=== PATIENT | female | born 1955 | race Caucasian/White ===

== ENCOUNTER → 2017-04-15 | Outpatient (CLI) | payer BC ==
[~2017-04-15] MED LIST: ASTNS; EFF50 PO; OXYC-57 PO; OXYSR10 PO; TRIA3AER NAE
[2017-04-15 13:20] LABS: CHOLESTEROL/HDL RATIO 2.2
== END | disposition home or self-care (01) ==
LOC: C.LABMFLN 08:24
PROVIDERS: ATTEND Family Medicine
DX: Z12.31 Encounter for screening mammogram for malignant neoplasm of breast (principal); Z13.220 Encounter for screening for lipoid disorders; Z13.1 Encounter for screening for diabetes mellitus

== ENCOUNTER 2017-07-02 07:11 | Inpatient (IN) | payer BC ==
[2017-06-03 13:15] VITALS: Ht 161.3 cm; Wt 117.9 kg
--- NOTE | 2017-06-03 13:49 | PAT Medication Instructions ---
Service Date Jun 03, 2017. Current Home Medication List Azelastine Hcl (Ophth) (Azelastine Hcl), 1 DROPS OP BID Azelastine Hcl-Fluticasone Pro (Dymista), 2 SPRY ZIA QAM Loratadine (Claritin), 10 MG PO QAM Multivitamin (Multivitamin), 1 TAB PO QAM Naproxen (Aleve), 220 MG PO PRN Triamcinolone Acetonide (Nasal (Nasacort Allergy 24Hr), 2 SPRAYS INTNAS QAM Venlafaxine Hcl (Venlafaxine Extended Rel), 37.5 MG PO QAM Medication Instructions For Your Scheduled Surgery -Contact your surgeon for instructions for: Naproxen (Aleve), 220 MG PO PRN - Hold the following medications the morning of surgery: Loratadine (Claritin), 10 MG PO QAM Multivitamin (Multivitamin), 1 TAB PO QAM - Take the following medications the morning of surgery with a sip of water: Triamcinolone Acetonide (Nasal (Nasacort Allergy 24Hr), 2 SPRAYS INTNAS QAM Venlafaxine Hcl (Venlafaxine Extended Rel), 37.5 MG PO QAM Azelastine Hcl (Ophth) (Azelastine Hcl), 1 DROPS OP BID Azelastine Hcl-Fluticasone Pro (Dymista), 2 SPRY ZIA QAM - Take the following medications as scheduled the night before surgery: Azelastine Hcl (Ophth) (Azelastine Hcl), 1 DROPS OP BID If you have any questions please call us at [phone] or [phone] or [phone]
--- NOTE | 2017-06-03 14:27 | DIAGNOSTIC IMAGING REPORT ---
CHEST 2 VIEWS ROUTINE CLINICAL HISTORY: 62 years-old Female presenting with preoperative assessment. TECHNIQUE: PA and lateral views of the chest were obtained. COMPARISON: 12/06/2010. FINDINGS: Atherosclerosis of aortic arch. Top normal heart size. Lungs and pleural spaces clear. Degenerative changes of the thoracic spine. Cholecystectomy clips noted. IMPRESSION: 1. No acute cardiopulmonary disease. Electronically signed by: Felipe Macias M.D. 06/03/2017 2:26 PM Dictated Date/Time: 06/03/2017 2:25 PM
[2017-06-03 15:01] LABS: BASO % 0.3 %; BASO ABS # 0.02 K/uL (0-0.2); EOS % 3.6 %; EOS ABS # 0.29 K/uL (0-0.5); HEMATOCRIT 41.5 % (37-47); HEMOGLOBIN 14.4 g/dL (12.0-16.0); IG# 0.01 K/uL (0.00-0.02); LYMPH % 28.4 %; LYMPH ABS # 2.27 K/uL (1.2-3.4); MEAN CELL VOLUME 93.5 fL (80-100); MEAN CORPUSCULAR HEMOGLOBIN 32.4 pg (25-34); MEAN CORPUSCULAR HGB CONC 34.7 g/dl (32-36); MEAN PLATELET VOLUME 9.7 fL (7.4-10.4); MONO % 5.4 %; MONO ABS # 0.43 K/uL (0.11-0.59); NEUT % 62.2 %; NEUT ABS # 4.97 K/uL (1.4-6.5); PLATELET COUNT 247 K/uL (130-400); RED CELL DISTRIBUTION WIDTH CV 13.3 % (11.5-14.5); RED CELL DISTRIBUTION WIDTH SD 45.4 fL (36.4-46.3); WHITE BLOOD COUNT 7.99 K/uL (4.8-10.8)
[2017-06-03 15:10] LABS: PTT PATIENT 25.1 SECONDS (21.0-31.0)
[2017-06-03 16:20] LABS: ALBUMIN 4.1 gm/dl (3.4-5.0); CALCIUM 8.8 mg/dl (8.5-10.1); CREATININE 0.86 mg/dl (0.60-1.20); POTASSIUM 3.7 mmol/L (3.5-5.1)
[2017-06-04 06:09] LABS: HEMOGLOBIN A1C 5.4 % (4.5-5.6)
--- NOTE | 2017-07-01 20:18 | HISTORY & PHYSICAL EXAMINATION ---
DATE OF ADMISSION: 07/02/2017 CHIEF COMPLAINT: Chronic right knee pain. HISTORY OF PRESENT ILLNESS: This is a 62-year-old female patient of Dr. Zamora'mathew complaining of chronic right knee pain, longstanding, now progressively getting worse. The patient has failed conservative treatment including anti-inflammatories and intraarticular injections. The patient has increased pain with weightbearing activities and her pain does interfere with her activities of daily living. PAST MEDICAL HISTORY: Osteoarthritis, obesity. SOCIAL HISTORY: Nonsmoker, nondrinker. PAST SURGICAL HISTORY: Left knee replacement, gallbladder surgery and tubal ligation. FAMILY HISTORY: Noncontributory. REVIEW OF SYSTEMS: The patient complains of chronic right knee pain, otherwise denies any shortness of breath, chest pain, nausea, vomiting or any other joint complaints. MEDICATIONS: 1. Azelastine 2 sprays in each nostril twice daily. 2. Nasacort 24-hour inhaler 55 mcg 2 puffs daily each nostril. 3. Venlafaxine 37.5 mg daily. ALLERGIES: No known drug allergies. PHYSICAL EXAMINATION: GENERAL: Well-developed, well-nourished 62-year-old female in no acute distress. She is alert and oriented x3 and pleasant. HEENT: Normocephalic, atraumatic. Extraocular motions are intact. Pupils are equal and reactive to light. HEART: Regular rate and rhythm, no murmurs are appreciated. LUNGS: Clear. ABDOMEN: Soft and nontender, bowel sounds are present. EXTREMITIES: Right knee reveals a neutral form. She is obese. Range of motion is limited at 0-95 degrees. She has a mild effusion. She has crepitation with passive range of motion and medial joint line tenderness. She has 4/5 strength. NEUROLOGIC: Neurovascularly, she is intact in her right lower extremity. DIAGNOSES: Right knee end-stage osteoarthritis and obesity. PLAN: The patient was advised of her diagnosis. Indications, risks, benefits, and postop course have all been reviewed. The patient wishes to proceed with a right total knee arthroplasty. Necessary consent forms, preoperative testing and clearances will be obtained.
[2017-07-02] VITALS (9 sets, daily range): BP systolic 98–144; BP diastolic 56–76; PULSE 62–80; TEMP 36.5–36.9; O2SAT 93–98
[~2017-07-02] VITALS: Ht 161.3 cm; Wt 117.9 kg
[2017-07-02] MEDS: TRANEXAMIC ACID INJ 1,000 MG in SYRINGE 0 ML IV SCH ×2 (06:30→09:44)
[~2017-07-02 07:11] MED LIST changes: +ACETAMINOPHEN 500 MG TAB PO SCH; -ASTNS; +AZEL0.055 OP; +AZEL30SP NAE; +BUPIVACAINE 0.25% 30 ML VIAL ONE; +BUPIVACAINE 0.5 % 5 MG/1 ML PF 10ML VIAL ONE; +CEFAZOLIN 2000MG IV PUSH 10 ML IV SCH; +CLR10 PO; +CeleBREX 200 MG CAP PO SCH; +DEXAMETHASONE 4 MG TAB PO SCH; -EFF50 PO; +FAMOTIDINE 20 MG TAB PO SCH; +GABAPENTIN 300 MG CAP PO SCH; +LACTATED RINGER'S 1000ML 1,000 ML IV SCH; +LACTATED RINGER'S 1000ML 500 ML IV SCH; +LACTATED RINGER'S 1000ML IV SCH; +METOCLOPRAMIDE HCL 10 MG TAB PO SCH; +MULT-506 PO; +NAPR1TAB9 PO; -OXYC-57 PO; -OXYSR10 PO; +ROPIVACAINE 5MG/ML 30 ML 150 MG, BUPIVACAINE 0.5% MPF INJ 30 ML, EpINEphrine HCL INJ 0.... INFIL SCH; +TRIA1SPR4 INTNAS; -TRIA3AER NAE; +VENL37.593 PO
[2017-07-02] MEDS ORDERED: EpHEDrine SULFATE INJ 50 MG/ML AMP IV PRN (07:15)
[2017-07-02] MEDS ORDERED: ONDANSETRON INJ 2 MG/ML 2 ML VIAL IV PRN ×2 (07:15→12:30)
[2017-07-02] MEDS ORDERED: ATROPINE SULFATE 0.1 MG/ML 5ML SYR IV PRN (07:15)
[2017-07-02] MEDS ORDERED: MIDAZOLAM HCL 1 MG/ML 2ML VIAL ONE ×2 (08:29→11:27)
[2017-07-02] MEDS ORDERED: ORTHO JOINT ANESTHETIC ONE (09:43)
[2017-07-02] MEDS ORDERED: BACITRACIN 50000 UNIT VIAL ONE (09:43)
[2017-07-02] MEDS ORDERED: POVIDONE-IODINE OP SOLN 30 ML BTL ONE (09:43)
[2017-07-02] MEDS ORDERED: LIDOCAINE HCL 2% 2 ML VIAL (20MG/ML) ONE (09:46)
[2017-07-02] MEDS ORDERED: PROPOFOL IV EMULSION 10 MG/ML 20 ML VIAL IV ONE (09:46)
--- NOTE | 2017-07-02 09:46 | History & Physical Bridge Note ---
H&P Re-Evaluation Bridge Note: I have examined the patient, reviewed the History & Physical and in the interval since the performance of the History & Physical I have noted the following changes of clinical significance: No changes noted
[2017-07-02] MEDS ORDERED: PHENYLEPHRINE 100MCG/ML 5ML SYR ONE (11:59)
[2017-07-02] MEDS ORDERED: OXYCODONE HCL IR 5 MG TAB (IMMEDIATE RELEASE) PO PRN (12:30)
[2017-07-02] MEDS ORDERED: METOCLOPRAMIDE HCL INJ 5 MG/ML 2 ML VIAL IV PRN (12:30)
[2017-07-02] MEDS ORDERED: MoRPHine SULFATE 2 MG/ML CARP IV PRN (12:30)
[2017-07-02] MEDS ORDERED: MAGNESIUM HYDROXIDE SUSP 30 ML UDC PO PRN (12:30)
[2017-07-02] MEDS ORDERED: BISACODYL 10 MG SUPP PR PRN (12:30)
[2017-07-02] MEDS ORDERED: SOD PHOSPHATE/SOD BIPHOSPHATE ENEMA 132 ML BTL PR PRN (12:30)
[2017-07-02] MEDS ORDERED: ZOLPIDEM TARTRATE 5 MG TAB PO PRN (12:30)
--- NOTE | 2017-07-02 12:33 | [facility] Post Operative Brief Note ---
Immediate Operative Summary Operative Date Jul 02, 2017. Pre-Operative Diagnosis Right knee end-stage osteoarthritis,morbid obesity Post-Operative Diagnosis Right knee end-stage osteoarthritis,morbid obesity Procedure(s) Performed Right Total Knee Arthroplasty, Cemented Surgeon Dr. Zamora Hydrotechnical Specialist Surgeon(s) Hany Mason PA-C Estimated Blood Loss 5 mL Findings Consistent with Post-Op Diagnosis Specimens A: Right Knee Bone and Tissue Drains 2 hemovac Anesthesia Type MAC Spinal Regional Complication(s) none
--- NOTE | 2017-07-02 12:45 | DIAGNOSTIC IMAGING REPORT ---
RIGHT KNEE 2 VIEWS CLINICAL HISTORY: Degenerative arthritis. Postsurgical study COMPARISON: None. DISCUSSION: There are postsurgical changes of a total right knee arthroplasty and patellar resurfacing. The femoral and tibial components appear well seated. Overlying skin cecilia and surgical drains are evident. There is air in the soft tissues consistent with recent surgery. IMPRESSION: Postsurgical changes of a total right knee arthroplasty. Electronically signed by: Mehdi Ghotra M.D. 07/02/2017 12:44 PM Dictated Date/Time: 07/02/2017 12:43 PM
--- NOTE | 2017-07-02 12:48 | Anesthesiology Progress Note ---
Anesthesia Post Op Note Date & Time Jul 02, 2017 at 12:47 Vital Signs Pain Intensity: 0 Vital Signs Past 12 Hours Date Time Temp Pulse Resp B/P (MAP) Pulse Ox O2 Delivery O2 Flow Rate FiO2 07/02/17 12:40 82 16 111/56 97 Oxymask 3 07/02/17 12:30 86 16 108/58 98 Oxymask 5 07/02/17 12:24 36.2 86 18 94/52 98 Oxymask 5 07/02/17 07:53 36.5 62 20 144/76 96 Room Air Notes Mental Status: alert / awake / arousable, participated in evaluation Pt Amnestic to Procedure: Yes Nausea / Vomiting: adequately controlled Pain: adequately controlled Airway Patency, RR, SpO2: stable & adequate BP & HR: stable & adequate Hydration State: stable & adequate Anesthetic Complications: no major complications apparent
[2017-07-02] MEDS: D5W AND 1/2NSS + 20MEQ KCL 1,000 ML IV SCH ×2 (14:25→23:57)
[2017-07-02] MEDS: ACETAMINOPHEN 500 MG TAB PO SCH ×2 (14:25→21:41)
--- NOTE | 2017-07-02 15:13 | OPERATIVE REPORT ---
DATE OF OPERATION: 07/02/2017 INDICATION FOR PROCEDURE: The patient is a 62-year-old female with progressive severe osteoarthritis of right knee. In 2010, she had a left knee replacement and did well with that. Her radiographs of her right knee demonstrate she has tricompartmental osteoarthritis. She has large posterior osteophytes and loose bodies and tricompartmental osteophytes, advanced patellofemoral and medial compartment DJD, varus knee. PREOPERATIVE DIAGNOSES: Severe endstage tricompartmental osteoarthritis, morbid obesity, BMI of 45.3. POSTOPERATIVE DIAGNOSES: Same. PROCEDURE: Right total knee arthroplasty, increased difficulty due to morbid obesity, BMI of 45.3. SURGEON: Dr. Zamora. RING PACKER: BRENDA Kessler. ANESTHESIA: Spinal, adductor nerve block and Orthomix and sedation. DESCRIPTION OF PROCEDURE: The patient taken to the operating room, anesthetized under anesthesia as dictated. She was placed supine on the operating room table. Knee exam demonstrates she had a very obese upper thigh and obese knee. She had a 5-10 degree flexion contracture, flexion only to 90 degrees. She has stiff knee. No instability. Pneumatic tourniquet was placed about her obese upper thigh. Then her right lower extremity was prepped and draped with ChloraPrep in sterile fashion. Leg was elevated, exsanguinated with Esmarch bandage. Pneumatic tourniquet was raised to 350 mmHg because of obesity. A longitudinal incision was made across the right knee. Skin was incised sharply and subcutaneous flaps were elevated. A moderately deep layer of fat was divided down to the fascia and elevated off the fascia. Incision was made through medial retinaculum and extended up in the mid third of the quadriceps tendon and extended down to the medial tibial tubercle. Intra-articular findings demonstrated that she had severe tricompartmental DJD, very large patellar osteophytes, grade 4 patellofemoral DJD, grade 4 medial compartment DJD. I used the [employer] 2.0 total knee arthroplasty system. Because of her obesity, we could not use an MRI templating, so we are using standard instrumentation. The knee was exposed by first excising the infrapatellar fat pad then doing some releases around the proximal medial tibial plateau. Then the medial meniscus was resected and the cruciate ligaments were resected, lateral meniscus resected, some of the fat pad over the anterior femur for placement of the plate to the anterior portion of the femoral component was resected and lateral synovial bands were released. Some of the thickened inflamed synovium was resected. The retractors were placed and the femur was exposed. Intramedullary drill hole was made into the femoral canal. The femoral alignment guide was placed. The femoral cut was made in 5 degrees of valgus. I had to use a +2 resection because of the flexion contracture more than the standard femoral cut. After femoral cut was made, we extended the knee and then addressed the patella which was very large and impeding our exposure of the femur. A subperiosteal peel lateral release was performed. The patella width was measured. Width was reproduced using a freehand cut technique and a 35 dome patella component. The drill hole was made and all bone spurs were resected. Then we get better retraction to expose the femur. The femoral sizing guide was placed in position and then we matched the epicondylar axis, pinned in position and then sized the femur and this knee was a 5 femoral component. After drilling the holes to place the cutting guide, the 5-in-1 cutting block was placed. Then anterior, posterior and chamfer cuts were made. The patient had very hard bone. Then the tibia was subluxed and the external tibial cutting guide was used to make a perpendicular cut to the long axis of the tibia, resecting the bone below the most medial deficient side. Then we used the laminar restaurant expeditor to assess ligamentous balance and remove any remnants of menisci, PCL posteriorly and then patient very large osteophytes and loose bodies. A large loose body was in the lateral compartment and there was significant bony spurs on the posterior femoral condyle. We used a curved osteotome to remove the spurs and angled curette and a Raheem to remove the bony fragments. All osteophytes were removed. We assessed ligaments balance in flexion and extension and they were balanced. Then the tibia was exposed and the tibia was sized for a 3 tibial component. A size 3 trial was externally rotated in line with the tibial tubercle, pinned in position. The punch for the stem was used. Then, the 5 femoral trial was inserted and centered and the notch cutting devices were used. A collet was placed. A 10 poly insert gave balanced ligaments through full motion and patient had full extension and 125 degrees of flexion. The trials were removed. We used the bone cuts to bone graft the femoral drill hole. This was irrigated and bone wax was placed into the notch area. Then the Orthomix anesthetic cocktail was injected per protocol, the knee was copiously irrigated with pulsatile lavage antibiotic solution and bacitracin. Final components were cemented with Simplex G cement. The final components were the 5 Oxinium posterior stabilized right femoral component, 3 primary tibial baseplate, the 10 mm posterior stabilized poly insert and 35 patella. The knee was placed in full extension while the cement cured and Betadine soak was used per protocol and cement cured. After the cement cured, the knee was again copiously irrigated out of the Betadine with pulsatile lavage antibiotic solution and bacitracin. Two drains were brought out laterally. The quadriceps tendon and medial retinaculum were closed with interrupted [id number] #1 Vicryl sutures. The knee was taken through a full range of motion and repair was secure. Subcutaneous tissues were closed with interrupted 2-0 Vicryl and skin was closed with cecilia and Silverlon dressing was applied. We did do closure over 2 Hemovac drains which were brought out laterally. BRENDA Kessler was my certified first assistant in the procedure. He assisted in patient positioning, museum assistant in placement of tourniquet placement, patient positioning, prepping, draping and during the procedure leg positioning, soft tissue retraction, instrument management and assisted in the subcutaneous and skin closure and dressings and will participate in the postoperative care of the patient. Through the procedure there was an increased level of difficulty with all of procedure due to her morbid obesity, BMI of 45.3. I attest to the content of the Intraoperative Record and any orders documented therein. Any exception s are noted below.
--- NOTE | 2017-07-02 15:23 | Medical Consult ---
Consultation Date of Consultation: Jul 02, 2017. Attending Physician: Steve Zamora M.D. Reason for Consultation: Medical Management History of Present Illness 62 y/o F who was admitted earlier today by Dr. Zamora s/p R TKA. Pt is doing well post-op. Pain is not really present yet. Tolerated snacks s/p OR. No chest pain or SOB. Pt denies fever, abd pain, n/v/c/d, LE pain or swelling. Pt states she had been taking effexor sporadically for post-menopausal issues, but had a recent d/c of this w/o issue. Past Medical/Surgical History Allergies Social History Smoking Status: Never Smoker Drug Use: none Allergies Coded Allergies: Meperidine (Verified Allergy, Unknown, NAUSEA AND VOMITING, 07/02/17) Current Inpatient Medications Current Inpatient Medications Medications (Trade) Dose Ordered Sig/Lizett Route Start Time Stop Time Status Last Admin Dose Admin Lactated Ringer's 1,000 ml @ 60 mls/hr [id number] IV 07/02/17 06:00 07/02/17 22:39 07/02/17 08:28 60 MLS/HR Cefazolin Sodium 10 ml @ 2.5 mls/min PREOP IV 07/02/17 06:00 07/02/17 18:00 07/02/17 10:02 2.5 MLS/MIN Acetaminophen (Tylenol Tab) 1,000 mg PREOP PO 07/02/17 06:00 07/02/17 18:00 07/02/17 08:31 1,000 MG Celecoxib (CeleBREX CAP) 200 mg PREOP PO 07/02/17 06:00 07/02/17 18:00 07/02/17 08:29 200 MG Dexamethasone (Decadron Tab) 8 mg PREOP PO 07/02/17 06:00 07/02/17 18:00 07/02/17 08:30 8 MG Famotidine (Pepcid Tab) 20 mg PREOP PO 07/02/17 06:00 07/02/17 18:00 07/02/17 08:30 20 MG Gabapentin (Neurontin Cap) 600 mg PREOP PO 07/02/17 06:00 07/02/17 18:00 07/02/17 08:30 600 MG Metoclopramide HCl (Reglan Tab) 10 mg PREOP PO 07/02/17 06:00 07/02/17 18:00 07/02/17 08:30 10 MG Lactated Ringer's 1,000 ml @ 15 mls/hr Q24H IV 07/02/17 06:00 07/03/17 05:59 Ephedrine Sulfate (EpHEDrine SULFATE INJ) 5 mg Q5M PRN IV 07/02/17 07:15 07/03/17 07:14 Atropine Sulfate (Atropine Sulfate 0.1mg/ml Inj) 0.5 mg Q1M PRN IV 07/02/17 07:15 07/03/17 07:14 Loratadine (Claritin Tab) 10 mg QAM PO 07/03/17 09:00 08/02/17 08:59 Triamcinolone Acetonide (Nasacort Allergy 24hr) 2 sprays QAM NA 07/03/17 09:00 08/02/17 08:59 Miscellaneous Information (Order Awaiting Action) 1 ea QS N/A 07/02/17 16:00 08/01/17 15:59 Miscellaneous Information (Order Awaiting Action) 1 ea QS N/A 07/02/17 16:00 08/01/17 15:59 Potassium Chloride/Dextrose/ Sod Cl 1,000 ml @ 100 mls/hr Q10H IV 07/02/17 14:15 07/03/17 14:14 Cefazolin Sodium 2000 mg/Syringe 15 ml @ 3.75 mls/ min Q8H IV 07/02/17 18:00 07/03/17 02:03 Oxycodone HCl (Roxicodone Immediate Rel Tab) 1 TABLET FOR PAIN RATING... Q4H PRN PO 07/02/17 12:30 07/16/17 12:29 Morphine Sulfate (MoRPHine SULFATE INJ) FOR PAIN, 2-4MG 2MG FOR P... Q2H PRN IV 07/02/17 12:30 07/16/17 12:29 Acetaminophen (Tylenol Tab) 1,000 mg Q8 PO 07/02/17 15:00 08/01/17 14:59 Magnesium Hydroxide (Milk Of Magnesia Susp) 30 ml Q6H PRN PO 07/02/17 12:30 08/01/17 12:29 Bisacodyl (Dulcolax Supp) 10 mg DAILY PRN NV 07/02/17 12:30 08/01/17 12:29 Sodium Biphosphate/ Sodium Phosphate (Fleet Enema) 132 ml DAILY PRN NV 07/02/17 12:30 08/01/17 12:29 Docusate Sodium (coLACE CAP) 100 mg BID PO 07/02/17 21:00 08/01/17 20:59 Diphenhydramine HCl (Benadryl Cap) 25 mg Q8H PRN PO 07/02/17 12:30 08/01/17 12:29 Zolpidem Tartrate (Ambien Tab) 5 mg HSZ PRN PO 07/02/17 12:30 08/01/17 12:29 Multivitamins (Multivitamin Tab) 1 tab QAM PO 07/03/17 09:00 08/02/17 08:59 Ondansetron HCl (Zofran Inj) 4 mg Q6H PRN IV 07/02/17 12:30 08/01/17 12:29 Metoclopramide HCl (Reglan Inj) 10 mg Q6H PRN IV 07/02/17 12:30 08/01/17 12:29 Pantoprazole Sodium (Protonix Tab) 40 mg QAM PO 07/03/17 09:00 07/07/17 08:59 Tramadol HCl (Ultram Tab) 1 tablet for pain rating... Q4H PRN PO 07/02/17 12:30 08/01/17 12:29 Rivaroxaban (Xarelto Tab) 10 mg Q24H PO 07/02/17 21:00 07/16/17 20:59 Review of Systems Pertinent positives and negatives reviewed in HPI--all others negative Physical Exam Date Time Temp Pulse Resp B/P (MAP) Pulse Ox O2 Delivery O2 Flow Rate FiO2 07/02/17 14:04 98 Nasal Cannula 2.0 07/02/17 13:50 98 Nasal Cannula 2.0 07/02/17 13:48 98 Nasal Cannula 2.0 07/02/17 13:43 36.6 79 17 118/74 (89) 96 Nasal Cannula 2.0 07/02/17 13:30 72 16 93/55 95 Oxymask 3 07/02/17 13:15 75 16 98/54 95 Oxymask 3 07/02/17 13:00 36.4 78 16 97/56 95 Oxymask 3 07/02/17 12:50 78 16 93/56 95 Oxymask 3 07/02/17 12:40 82 16 111/56 97 Oxymask 3 07/02/17 12:30 86 16 108/58 98 Oxymask 5 07/02/17 12:24 36.2 86 18 94/52 98 Oxymask 5 07/02/17 07:53 36.5 62 20 144/76 96 Room Air General Appearance: WD/WN, no apparent distress Head: normocephalic, atraumatic Eyes: normal inspection, sclerae normal Respiratory/Chest: normal breath sounds, no respiratory distress Cardiovascular: regular rate, rhythm, normal peripheral pulses Abdomen/GI: non tender, soft Extremities/Musculoskelatal: no calf tenderness, no pedal edema Neurologic/Psych: alert, normal mood/affect, oriented x 3 Skin: normal color, warm/dry Assessment & Plan 62 y/o F who was admitted on 07/[address] Zamora s/p R TKA. R TKA: as per ortho Allergies: continue nasal sprays Post-menopausal syndrome: appears resolved and no longer needs effexor DVT proph and diet as per ortho
[2017-07-02] MEDS: CEFAZOLIN IV 2,000 MG in SYRINGE 0 ML IV SCH (18:14)
[2017-07-02] MEDS: TRAMADOL HCL 50 MG TAB PO PRN (19:58)
[2017-07-02] MEDS: DOCUSATE SODIUM 100 MG CAP PO SCH (20:37)
[2017-07-02] MEDS: RIVAROXABAN 10 MG TAB PO SCH (20:38)
[2017-07-03] MEDS: CEFAZOLIN IV 2,000 MG in SYRINGE 0 ML IV SCH (01:49)
[2017-07-03 04:05] VITALS: BP 125/71; PULSE 66; TEMP 36.6; O2SAT 97
[2017-07-03] MEDS: ACETAMINOPHEN 500 MG TAB PO SCH ×3 (05:40→20:57)
[2017-07-03 06:09] LABS: HEMOGLOBIN 11.4 g/dL (12.0-16.0); MEAN CELL VOLUME 92.4 fL (80-100); MEAN CORPUSCULAR HEMOGLOBIN 31.9 pg (25-34); MEAN CORPUSCULAR HGB CONC 34.5 g/dl (32-36); MEAN PLATELET VOLUME 9.6 fL (7.4-10.4); PLATELET COUNT 202 K/uL (130-400); RED CELL DISTRIBUTION WIDTH CV 13.5 % (11.5-14.5); RED CELL DISTRIBUTION WIDTH SD 45.2 fL (36.4-46.3)
[2017-07-03 06:43] LABS: CALCIUM 8.2 mg/dl (8.5-10.1); CREATININE 0.73 mg/dl (0.60-1.20); POTASSIUM 4.5 mmol/L (3.5-5.1)
[2017-07-03 07:07] VITALS: BP 123/72; PULSE 65; TEMP 36.6; O2SAT 96
--- NOTE | 2017-07-03 08:01 | Orthopedic Progress Note ---
Orthopedic Progress Note Date of Service Jul 03, 2017. Subjective Post OP Day: 1 Reports: feeling well, pain controlled w PO medications, Denies: complaints, chest pain, SOB, nausea / vomiting, light headedness, calf pain Objective calves soft nontender, N/V intact, capillary refill less than 2 sec., dressing C /D/I, A&O x3, toes mobile Date Time Temp Pulse Resp B/P (MAP) Pulse Ox O2 Delivery O2 Flow Rate FiO2 07/03/17 07:07 36.6 65 18 123/72 (89) 96 Room Air 07/03/17 04:05 36.6 66 16 125/71 (89) 97 Room Air 07/02/17 23:45 Room Air 07/02/17 23:18 36.6 69 15 98/56 (70) 94 Room Air 07/02/17 19:00 36.9 80 18 103/64 (77) 93 Room Air 07/02/17 16:43 76 18 135/67 (89) 93 Room Air 07/02/17 15:45 94 Room Air 07/02/17 15:44 78 18 108/66 (80) 94 Room Air 07/02/17 14:04 98 Nasal Cannula 2.0 07/02/17 13:50 98 Nasal Cannula 2.0 07/02/17 13:48 98 Nasal Cannula 2.0 07/02/17 13:43 36.6 79 17 118/74 (89) 96 Nasal Cannula 2.0 07/02/17 13:30 72 16 93/55 95 Oxymask 3 07/02/17 13:15 75 16 98/54 95 Oxymask 3 07/02/17 13:00 36.4 78 16 97/56 95 Oxymask 3 07/02/17 12:50 78 16 93/56 95 Oxymask 3 07/02/17 12:40 82 16 111/56 97 Oxymask 3 07/02/17 12:30 86 16 108/58 98 Oxymask 5 07/02/17 12:24 36.2 86 18 94/52 98 Oxymask 5 Laboratory Results 24 Hours: Test 07/03/17 05:35 Hematocrit 33.0 % Hemoglobin 11.4 g/dL Assessment & Plan Assessment: POD #1, Right TKA Plan: PT/ OT DVT proph- Xarelto D/C planning- Home w OPPT As per medicine Inhouse Planning Pain Management: Ultram, Morphine, PO Tylenol, Oxy IR DVT Prophylaxis: TEDs, SCDs, Xarelto Discharge Planning Discharge Planning: home with oppt Pain Management: PO Tylenol, Oxy IR DVT Prophylaxis: TEDs, Xarelto Therapy: Physical Therapy, Occupational Therapy
[2017-07-03] MEDS: TRIAMCINOLONE ACET NASAL SPRAY 10.8ML BTL SCH (09:00)
[2017-07-03] MEDS: DOCUSATE SODIUM 100 MG CAP PO SCH ×2 (09:01→20:56)
[2017-07-03] MEDS: MULTIVITAMIN TAB PO SCH (09:01)
[2017-07-03] MEDS: LORATADINE 10 MG TAB PO SCH (09:02)
[2017-07-03] MEDS: D5W AND 1/2NSS + 20MEQ KCL 1,000 ML IV SCH (09:02)
[2017-07-03] MEDS: PANTOprazole SOD 40 MG TAB PO SCH (09:02)
--- NOTE | 2017-07-03 09:35 | Anesthesiology Progress Note ---
Anesthesia Post Op Note Date & Time Jul 03, 2017 at 09:33 Vital Signs Pain Intensity: 0.0 Vital Signs Past 12 Hours Date Time Temp Pulse Resp B/P (MAP) Pulse Ox O2 Delivery O2 Flow Rate FiO2 07/03/17 07:30 Room Air 07/03/17 07:07 36.6 65 18 123/72 (89) 96 Room Air 07/03/17 04:05 36.6 66 16 125/71 (89) 97 Room Air 07/02/17 23:45 Room Air 07/02/17 23:18 36.6 69 15 98/56 (70) 94 Room Air Notes Mental Status: alert / awake / arousable, participated in evaluation Pt Amnestic to Procedure: Yes Nausea / Vomiting: adequately controlled Pain: adequately controlled Airway Patency, RR, SpO2: stable & adequate BP & HR: stable & adequate Hydration State: stable & adequate Neuraxial Anesthesia: sensory block resolved Anesthetic Complications: no major complications apparent
--- NOTE | 2017-07-03 12:01 | Progress Note ---
Subjective Date of Service: Jul 03, 2017. Subjective Pt evaluation today including: conversation w/ patient t is doing well post-op. States she is aware of her cecilia but no real pain. Tolerating PO without issue. Pt denies fever, SOB, chest pain, abd pain, n/v/c/ d, LE pain or swelling. States her home is set up for this as her had a somewhat recent knee replacement. Review of Systems All Other Systems: Reviewed and Negative Objective Vital Signs Date Time Temp Pulse Resp B/P (MAP) Pulse Ox O2 Delivery O2 Flow Rate FiO2 07/03/17 07:30 Room Air 07/03/17 07:07 36.6 65 18 123/72 (89) 96 Room Air 07/03/17 04:05 36.6 66 16 125/71 (89) 97 Room Air 07/02/17 23:45 Room Air 07/02/17 23:18 36.6 69 15 98/56 (70) 94 Room Air 07/02/17 19:00 36.9 80 18 103/64 (77) 93 Room Air 07/02/17 16:43 76 18 135/67 (89) 93 Room Air 07/02/17 15:45 94 Room Air 07/02/17 15:44 78 18 108/66 (80) 94 Room Air 07/02/17 14:04 98 Nasal Cannula 2.0 07/02/17 13:50 98 Nasal Cannula 2.0 07/02/17 13:48 98 Nasal Cannula 2.0 07/02/17 13:43 36.6 79 17 118/74 (89) 96 Nasal Cannula 2.0 07/02/17 13:30 72 16 93/55 95 Oxymask 3 07/02/17 13:15 75 16 98/54 95 Oxymask 3 07/02/17 13:00 36.4 78 16 97/56 95 Oxymask 3 07/02/17 12:50 78 16 93/56 95 Oxymask 3 07/02/17 12:40 82 16 111/56 97 Oxymask 3 07/02/17 12:30 86 16 108/58 98 Oxymask 5 07/02/17 12:24 36.2 86 18 94/52 98 Oxymask 5 Physical Exam Comments: General Appearance: WD/WN, no apparent distress Head: normocephalic, atraumatic Eyes: normal inspection, sclerae normal Respiratory/Chest: normal breath sounds, no respiratory distress Cardiovascular: regular rate, rhythm, normal peripheral pulses Abdomen/GI: non tender, soft Extremities/Musculoskelatal: no calf tenderness, no pedal edema Neurologic/Psych: alert, normal mood/affect, oriented x 3 Skin: normal color, warm/dry Laboratory Results Last 24 Hours Test 07/03/17 05:35 White Blood Count 14.60 K/uL Red Blood Count 3.57 M/uL Hemoglobin 11.4 g/dL Hematocrit 33.0 % Mean Corpuscular Volume 92.4 fL Mean Corpuscular Hemoglobin 31.9 pg Mean Corpuscular Hemoglobin Concent 34.5 g/dl RDW Standard Deviation 45.2 fL RDW Coefficient of Variation 13.5 % Platelet Count 202 K/uL Mean Platelet Volume 9.6 fL Sodium Level 137 mmol/L Potassium Level 4.5 mmol/L Chloride Level 107 mmol/L Carbon Dioxide Level 26 mmol/L Anion Gap 4.0 mmol/L Blood Urea Nitrogen 12 mg/dl Creatinine 0.73 mg/dl Est Creatinine Clear Calc Drug Dose 98.7 ml/min Estimated GFR () 101.6 Estimated GFR (Non- 87.7 BUN/Creatinine Ratio 16.4 Random Glucose 136 mg/dl Calcium Level 8.2 mg/dl Assessment and Plan 62 y/o F who was admitted on 07/[address] Zamora s/p R TKA. R TKA: as per ortho Allergies: continue nasal sprays Post-menopausal syndrome: appears resolved and no longer needs effexor DVT proph and diet as per ortho Plans are for home with outpt PT/OT
[2017-07-03] MEDS ORDERED: AZEL0.15 NAE (15:07)
[2017-07-03 15:45] VITALS: O2SAT 96
[2017-07-03 16:03] VITALS: BP 125/75; PULSE 73; TEMP 36.4; O2SAT 96
[2017-07-03] MEDS: AZELASTINE HCL 0.1 % NASAL SPRAY SCH (20:56)
[2017-07-03] MEDS: RIVAROXABAN 10 MG TAB PO SCH (20:56)
[2017-07-03 23:52] VITALS: BP 125/72; PULSE 72; TEMP 36.9; O2SAT 96
[2017-07-04] MEDS: ACETAMINOPHEN 500 MG TAB PO SCH ×2 (05:31→15:25)
[2017-07-04] MEDS: TRAMADOL HCL 50 MG TAB PO PRN (05:33)
[2017-07-04 06:20] VITALS: BP 118/74; PULSE 67; TEMP 36.9; O2SAT 97
[2017-07-04 07:15] VITALS: BP 108/68
[2017-07-04 07:20] VITALS: BP 96/61
[2017-07-04 07:46] LABS: HEMATOCRIT 31.6 % (37-47); HEMOGLOBIN 10.8 g/dL (12.0-16.0); MEAN CELL VOLUME 93.5 fL (80-100); MEAN CORPUSCULAR HGB CONC 34.2 g/dl (32-36); MEAN PLATELET VOLUME 9.6 fL (7.4-10.4); PLATELET COUNT 226 K/uL (130-400); RED CELL DISTRIBUTION WIDTH CV 13.7 % (11.5-14.5); RED CELL DISTRIBUTION WIDTH SD 46.6 fL (36.4-46.3); WHITE BLOOD COUNT 10.29 K/uL (4.8-10.8)
[2017-07-04 08:09] LABS: CALCIUM 7.9 mg/dl (8.5-10.1); CREATININE 0.84 mg/dl (0.60-1.20); POTASSIUM 3.9 mmol/L (3.5-5.1)
[2017-07-04] MEDS: TRIAMCINOLONE ACET NASAL SPRAY 10.8ML BTL SCH (08:09)
[2017-07-04] MEDS: MULTIVITAMIN TAB PO SCH (08:10)
[2017-07-04] MEDS: PANTOprazole SOD 40 MG TAB PO SCH (08:10)
[2017-07-04] MEDS: AZELASTINE HCL 0.1 % NASAL SPRAY SCH (08:10)
[2017-07-04] MEDS: LORATADINE 10 MG TAB PO SCH (08:10)
[2017-07-04] MEDS: DOCUSATE SODIUM 100 MG CAP PO SCH (08:10)
--- NOTE | 2017-07-04 08:14 | Orthopedic Progress Note ---
Orthopedic Progress Note Date of Service Jul 04, 2017. Subjective Post OP Day: 2 Reports: feeling well, light headedness, Denies: complaints, chest pain, SOB, nausea / vomiting, calf pain, pain controlled w PO medications Additional Notes: PER NURSING, PATIENT HAD ONE EPISODE OF LIKELY ORTHOSTATIC HYPOTENSION THIS AM, SXS RESOLVED IMMEDIATELY WHEN BACK IN BED, FEELING WELL AT ROUNDS. HGB 10.8, BP' S STABLE. PATIENT DOESNT DO WELL WITH PAIN PILLS AND STATES SHE DID HAVE AN ULTRAM WITH NO FOOD THIS AM PRIOR TO EPISODE. Objective calves soft nontender, N/V intact, capillary refill less than 2 sec., dressing C /D/I, A&O x3, toes mobile SILVERLON IN TACT, BUT CRACKED. Date Time Temp Pulse Resp B/P (MAP) Pulse Ox O2 Delivery O2 Flow Rate FiO2 07/04/17 07:20 96/61 (73) 07/04/17 07:15 108/68 (81) 07/04/17 06:20 36.9 67 16 118/74 (89) 97 Room Air 07/03/17 23:52 36.9 72 16 125/72 (89) 96 Room Air 07/03/17 23:43 Room Air 07/03/17 16:03 36.4 73 18 125/75 (92) 96 Room Air 07/03/17 15:45 96 Room Air Laboratory Results 24 Hours: Test 07/04/17 07:29 Hematocrit 31.6 % Hemoglobin 10.8 g/dL Assessment & Plan Assessment: POD #2, Right TKA Plan: PT/ OT DVT proph- Xarelto D/C planning- Home w OPPT AFTER 1600 TODAY IF BP STABLE AND NO DIZZINESS. As per medicine Inhouse Planning Pain Management: Ultram, Morphine, PO Tylenol, Oxy IR DVT Prophylaxis: TEDs, SCDs, Xarelto Discharge Planning Discharge Planning: home with oppt Pain Management: PO Tylenol, Oxy IR DVT Prophylaxis: TEDs, Xarelto Therapy: Physical Therapy, Occupational Therapy
[2017-07-04] MEDS ORDERED: ACET-24 PO (08:16)
[2017-07-04] MEDS ORDERED: XRL10 PO (08:16)
[2017-07-04] MEDS ORDERED: ULT50X PO (08:16)
--- NOTE | 2017-07-04 08:17 | Discharge Instructions ---
Discharge Instructions Date of Service Jul 04, 2017. Admission Reason for Admission: Right Knee Osteoarthritis Discharge Discharge Diagnosis / Problem: RIGHT TKA Discharge Goals Goal(s): Improve function Activity Recommendations Activity Limitations: as noted below . Instructions / Follow-Up Instructions / Follow-Up ACTIVITY RECOMMENDATIONS: SELF CARE INSTRUCTIONS AFTER TOTAL KNEE REPLACEMENT A. You may need to continue a physical therapy program after discharge from the hospital. There are several options available to you. Your doctor will assist you in selecting the best one for you. 1. An out-patient facility 2 to 3 times a week for therapy or home therapy. 2. Continue working on all exercises taught to you in the hospital. Your goals should be to increase bending of your knee to 90 degrees and beyond and to fully straighten your knee. B. You may progress at your own pace from walking with a walker or crutches to a cane; then to no assistive devices. C. Make walking a part of your daily routine. Be up as much as comfortable with rest periods throughout the day. Rest with leg elevation is very important. Use the ice wrap frequently for the first 3-4 weeks. D. There are no restrictions on activities. You may ride in a car, shop, participate in ground wirer and all social activities. E. Wear the long elastic stockings (LEYDA hose) 20 hours a day for 2 weeks after surgery. They can be removed several times a day for laundering and for a bath. F. You may shower, no tub baths until cleared by your doctor. SPECIAL CARE INSTRUCTIONS: VERY IMPORTANT TO READ AND REVIEW A. There are a few signs you need to watch for after you are home. Call [facility] if you notice any of the followin. Increased severe knee pain. Some pain is expected especially when you exercise. 2. Increased swelling in your leg or knee; pain or swelling of the calf muscle in either lower leg. 3. Any fluid drainage from the incision. 4. Shortness of breath or chest pain. B. Please call [facility] at if you have any concerns or questions about your operation or recovery. The doctor or his nurse will return your call promptly. C. You must take antibiotics before dental work, bladder, bowel or other surgery. Your doctor will provide you with a permanent care to carry describing this precaution. IMPORTANT: * REMEMBER TO TAKE ASPIRIN, 81 MG, TWICE DAILY FOR 4 WEEKS UNLESS OTHERWISE DIRECTED. THIS IS YOUR BLOOD THINNER. * HIGH RISK PATIENTS MAY BE PRESCRIBED A STRONGER BLOOD THINNER. THIS WILL BE PROVIDED AT DISCHARGE. * CALL IF INCREASED PAIN, REDNESS, DRAINAGE OR FEVER GREATER THAT 101. * WEAR LEYDA HOSE 20 HOURS PER DAY FOR 2 WEEKS. * YOU MAY HAVE A LARGE BAND-AID LIKE DRESSING (SILVERON). THIS WILL REMAIN ON YOUR INCISION FOR 7 DAYS, THEN CAN BE REMOVED. IF INCISION IS LEAKING THROUGH DRESSING, CALL THE OFFICE . FOLLOW UP VISIT: If appointment is not already scheduled: Please call [facility] to make a follow-up appointment for 2 weeks after your surgery at . Current Hospital Diet Patient's current hospital diet: AHA Diet (Heart Healthy) Discharge Diet Recommended Diet: Regular Diet Procedures Procedures Performed: Right Total Knee Arthroplasty, Cemented Pending Studies Studies pending at discharge: no Laboratory Results Hemoglobin A1c Test 06/03/17 13:58 Range/Units Estimated Average Glucose 108 mg/dl Hemoglobin A1c 5.4 4.5-5.6 % Lipid Panel Test 04/15/17 08:27 Range/Units Triglycerides Level 55 0-150 mg/dl Cholesterol Level 146 0-200 mg/dl HDL Cholesterol 66 mg/dl Cholesterol/HDL Ratio 2.2 LDL Cholesterol, Calculated 69 mg/dl Medical Emergencies . Who to Call and When: Medical Emergencies: If at any time you feel your situation is an emergency, please call 911 immediately. . Non-Emergent Contact Non-Emergency issues call your: Primary Care Provider . "Provider Documentation" section prepared by Hany Mason. . VTE Core Measure Inpt VTE Proph given/why not?: Other Anticoagulation (XARELTO), T.E.Canids Cuellar, SCD's [place] Drug Monitoring Program Search Results: patient reviewed within database, no issues identified
--- NOTE | 2017-07-04 09:25 | Clinical Documentation Query ---
Dr. LOMBARDI,ERASTO : CLINICAL DOCUMENTATION QUERY Patient is a 62 year old female who on 07/02 underwent elective right TKA. EBL for the procedure was 5 ml's with subsequent losses totaling an additional 1,075 ml's to date. Preoperative H&H was 14.4 g/dl and 41.5%. This a.m. (07/04) values were 10.8 g/dl and 31.6%. She has been monitored by serial hematology and I/O including drain outputs. In your clinical opinion is this patient being managed for: ( ) Acute blood loss anemia ( ) Not Agree ( ) Other explanation of clinical findings (Please Explain) ( ) Unable to determine (Please Define) ( ) Need to Discuss The medical record reflects the following clinical findings, treatment, and risk factors. Clinical Indicators: As above Treatment: She has been monitored by serial hematology and I/O including drain outputs Risk Factors: Acute perioperative blood losses Please clarify and document your clinical opinion in the progress notes and discharge summary. Terms such as "probable", "suspected", "likely", "questionable", "possible", or "still to be ruled out" are acceptable. IF IN AGREEMENT, YOU MUST DOCUMENT ABOVE DIAGNOSTIC STATEMENT IN DAILY PROGRESS NOTES AND DISCHARGE SUMMARY. This document is not part of the patient's record. Thank You, Woo Mcclellan RN [phone]
[2017-07-04 10:55] VITALS: TEMP 36.9; O2SAT 97
[2017-07-04 12:57] VITALS: BP 128/73; PULSE 75
--- NOTE | 2017-07-04 13:00 | Progress Note ---
Subjective Date of Service: Jul 04, 2017. Subjective Pt evaluation today including: conversation w/ patient Pt took pain medication this AM on an empty stomach and became lightheaded and woozy this AM. This resolved with PO intake. She was ultimately able to PT today and feels much better now. Pain is manageable. Pt denies fever, SOB, chest pain, abd pain, c/d, LE pain or swelling. Review of Systems All Other Systems: Reviewed and Negative Objective Vital Signs Date Time Temp Pulse Resp B/P (MAP) Pulse Ox O2 Delivery O2 Flow Rate FiO2 07/04/17 12:57 75 128/73 (91) 07/04/17 10:55 36.9 67 16 97 Room Air 07/04/17 07:20 96/61 (73) 07/04/17 07:20 Room Air 07/04/17 07:15 108/68 (81) 07/04/17 06:20 36.9 67 16 118/74 (89) 97 Room Air 07/03/17 23:52 36.9 72 16 125/72 (89) 96 Room Air 07/03/17 23:43 Room Air 07/03/17 16:03 36.4 73 18 125/75 (92) 96 Room Air 07/03/17 15:45 96 Room Air Physical Exam Comments: General Appearance: WD/WN, no apparent distress Head: normocephalic, atraumatic Eyes: normal inspection, sclerae normal Respiratory/Chest: normal breath sounds, no respiratory distress Cardiovascular: regular rate, rhythm, normal peripheral pulses Abdomen/GI: non tender, soft Extremities/Musculoskelatal: no calf tenderness, no pedal edema Neurologic/Psych: alert, normal mood/affect, oriented x 3 Skin: normal color, warm/dry Laboratory Results Last 24 Hours Test 07/04/17 07:29 White Blood Count 10.29 K/uL Red Blood Count 3.38 M/uL Hemoglobin 10.8 g/dL Hematocrit 31.6 % Mean Corpuscular Volume 93.5 fL Mean Corpuscular Hemoglobin 32.0 pg Mean Corpuscular Hemoglobin Concent 34.2 g/dl RDW Standard Deviation 46.6 fL RDW Coefficient of Variation 13.7 % Platelet Count 226 K/uL Mean Platelet Volume 9.6 fL Sodium Level 138 mmol/L Potassium Level 3.9 mmol/L Chloride Level 106 mmol/L Carbon Dioxide Level 25 mmol/L Anion Gap 7.0 mmol/L Blood Urea Nitrogen 16 mg/dl Creatinine 0.84 mg/dl Est Creatinine Clear Calc Drug Dose 85.8 ml/min Estimated GFR () 85.7 Estimated GFR (Non- 74.0 BUN/Creatinine Ratio 18.4 Random Glucose 103 mg/dl Calcium Level 7.9 mg/dl Assessment and Plan 62 y/o F who was admitted on 07/[address] Zamora s/p R TKA. R TKA: as per ortho Allergies: continue nasal sprays Post-menopausal syndrome: appears resolved and no longer needs effexor DVT proph and diet as per ortho Plans are for home with outpt PT/OT, planning for d/c later today
[2017-07-04 15:25] VITALS: BP 112/71; PULSE 80
== END 2017-07-04 16:08 | disposition home or self-care (01) | DRG 470 ==
LOC: C.ACU 07:11 → C.3E 09:42 → ENRESERV 13:22
PROVIDERS: ADMIT Orthopaedic Surgery Sports Medicine; ATTEND Orthopaedic Surgery Sports Medicine
PROC: 0SRC0J9 Replacement of Right Knee Joint with Synthetic Substitute, Cemented, Open Approach (ICD-10-PCS; principal; 2017-07-02 09:30)
DX: M17.11 Unilateral primary osteoarthritis, right knee (principal); Z68.42 Body mass index [BMI] 45.0-49.9, adult; E66.01 Morbid (severe) obesity due to excess calories; I95.1 Orthostatic hypotension; J32.9 Chronic sinusitis, unspecified; Z96.652 Presence of left artificial knee joint; Z87.898 Personal history of other specified conditions; Z79.51 Long term (current) use of inhaled steroids; Z79.899 Other long term (current) drug therapy

== ENCOUNTER 2019-11-22 07:35 | Observation (INO) ==
--- NOTE | 2019-11-16 09:41 | Anesthesiology Consultation ---
Date of Service November 16, 2019 Assessment & Plan (1) Encounter for pre-operative examination: COVID Status: As of 11/15 nurse assessment, patient denies travel to endemic area, known exposure/sick contacts, or symptoms of COVID19. Preoperative COVID19 testing to be completed on 11/16. Chart Review Chart Review: Acceptable Risk for Surgery and Patient NOT seen in Pre Admission Testing History Surgery Operation Date: 11/22/19 08:20 Proposed Procedures p Left Breast Lumpectomy with Needle Localization and Needle Localization Left Axillary Lymph Node Biopsy, Left [place] Lymph Node Biopsy - Nilesh Lawrence MD, FACS Height/Weight Height: 5 ft 4 in Weight: 115.666 kg Allergies Allergy/AdvReac Type Severity Reaction Status Date / Time meperidine AdvReac Unknown NAUSEA AND Verified 11/16/19 08:04 VOMITING, severe drowsiness oxycodone AdvReac Unknown Hypotension Verified 11/16/19 08:08 & vertigo Medications Home Medications Medication Instructions Recorded Confirmed Last Taken azelastine 137 mcg (0.1 %) nasal 2 sprays INTNAS BID #30 ml 05/18/19 11/16/19 Unknown spray aerosol loratadine [Claritin] 10 mg PO DAILY 11/16/19 11/16/19 Unknown multivitamin 1 tab PO DAILY 11/16/19 11/16/19 Unknown triamcinolone acetonide [Nasacort] 2 spray INTRANASAL DAILY 11/16/19 11/16/19 Unknown Past Medical History Medical History Allergic rhinitis (Acute) Asthma, mild intermittent (Acute) Breast cancer left breast Depression no medications History of anemia History of bronchitis Primary osteoarthritis of right knee (Acute) Uterine cancer October 2019 Past Family History Family History Mother Colorectal cancer Diabetes Hypertension Breast cancer Ovarian cancer Skin cancer (melanoma) Cancer Father Heart disease Cancer Grandmother Colorectal cancer Brother Diabetes Heart disease Hypertension Grandfather (Maternal) Heart disease Grandfather (Paternal) Heart disease Sister Hypertension Past Surgical History Surgical History H/O colonoscopy History of knee replacement (01/04/11) Left knee History of knee replacement (07/01/17) right knee History of tubal ligation (~12/1977) Hx of cholecystectomy (~1993) S/P MARIBETH-BSO October 2019 Social History Smoking Status: Never smoker Do You Dip or Chew Tobacco: No Hx Alcohol Use: Yes Alcohol type: beer and hard liquor alcohol intake frequency: holidays/special occasions only Hx Substance Use: No substance use type: does not use Testing Laboratory Results 11/03/19 WBC: 5.60 H/H: 14.4/42.4 PLATELETS: 274 SODIUM: 140 POTASSIUM: 3.9 CHLORIDE: 107 CO2: 25 BUN: 11 CREATININE: 0.75 GLUCOSE: 125 Electrocardiogram Date: 05/18/19 Findings: + NSR @ (71bpm)
[~2019-11-22 07:35] MED LIST changes: -ACETAMINOPHEN 500 MG TAB PO SCH; -AZEL0.055 OP; -AZEL30SP NAE; -BUPIVACAINE 0.25% 30 ML VIAL ONE; -BUPIVACAINE 0.5 % 5 MG/1 ML PF 10ML VIAL ONE; +CEFAZOLIN 2000MG 2,000 MG/15 ML SYR IV SCH; -CEFAZOLIN 2000MG IV PUSH 10 ML IV SCH; -CLR10 PO; -CeleBREX 200 MG CAP PO SCH; -DEXAMETHASONE 4 MG TAB PO SCH; -FAMOTIDINE 20 MG TAB PO SCH; -GABAPENTIN 300 MG CAP PO SCH; -LACTATED RINGER'S 1000ML 1,000 ML IV SCH; -LACTATED RINGER'S 1000ML 500 ML IV SCH; -LACTATED RINGER'S 1000ML IV SCH; +LR 15ML/HR IV SCH; -METOCLOPRAMIDE HCL 10 MG TAB PO SCH; -MULT-506 PO; -NAPR1TAB9 PO; -ROPIVACAINE 5MG/ML 30 ML 150 MG, BUPIVACAINE 0.5% MPF INJ 30 ML, EpINEphrine HCL INJ 0.... INFIL SCH; -TRIA1SPR4 INTNAS; -VENL37.593 PO
[2019-11-22] MEDS ORDERED: MIDAZOLAM HCL 1 MG/ML 2ML VIAL ONE (08:02)
[2019-11-22] MEDS ORDERED: fentaNYL citrate 100 MCG/2 ML VIAL ONE ×2 (08:02→11:08)
--- NOTE | 2019-11-22 08:45 | History & Physical Report ---
Date of Service November 22, 2019 Assessment & Plan (1) Breast cancer, left: Patient is for needle localization left breast lumpectomy with sentinel lymph node biopsy She is also for needle localization of the left axillary lymph node with excision Possible left axillary dissection We will need to remove the nipple areolar complex because of the locality of the tumor History of Present Illness Primary Care Provider: Daniel Carter MD 64-year-old female with lobular carcinoma of the left breast and also a positive left axillary lymph node Patient was evaluated for neoadjuvant treatment but the decision was to proceed with breast surgery Patient did have recent endometrial cancer with hysterectomy performed at [facility] Allergies Allergy/AdvReac Type Severity Reaction Status Date / Time meperidine AdvReac Unknown NAUSEA AND Verified 11/16/19 08:04 VOMITING, severe drowsiness oxycodone AdvReac Unknown Hypotension Verified 11/16/19 08:08 & vertigo Home Medications Home Medications Medication Instructions Recorded Confirmed Type azelastine 137 mcg (0.1 %) nasal 2 sprays INTNAS BID #30 ml 05/18/19 11/16/19 Rx spray aerosol loratadine [Claritin] 10 mg PO DAILY 11/16/19 11/16/19 History multivitamin 1 tab PO DAILY 11/16/19 11/16/19 History triamcinolone acetonide [Nasacort] 2 spray INTRANASAL DAILY 11/16/19 11/16/19 History Past Med/Surg History Medical History Allergic rhinitis (Acute) Asthma, mild intermittent (Acute) Breast cancer left breast Depression no medications History of anemia History of bronchitis Primary osteoarthritis of right knee (Acute) Uterine cancer October 2019 Surgical History H/O colonoscopy History of knee replacement (01/04/11) Left knee History of knee replacement (07/01/17) right knee History of tubal ligation (~12/1977) Hx of cholecystectomy (~1993) S/P MARIBETH-BSO October 2019 Family History Mother Colorectal cancer Diabetes Hypertension Breast cancer Ovarian cancer Skin cancer (melanoma) Cancer Father Heart disease Cancer Grandmother Colorectal cancer Brother Diabetes Heart disease Hypertension Grandfather (Maternal) Heart disease Grandfather (Paternal) Heart disease Sister Hypertension Social History (Updated 09/29/19 @ 11:44 by Cynthia Garcia RN) Preferred Language: Occitan Communication Ability: Effective Visual Impairment: Limited Hearing Ability: Normal Trial Management Associate Required: No Beliefs That Will Affect Care: None marital status: Current Living Situation: Spouse current occupational status: retired current occupation: Teacher Feels Safe at Home: Yes Safety Concerns: Feels Safe At This Time Smoking Status: Never smoker Do You Dip or Chew Tobacco: No ; Second Hand Exposure: Yes (hx) ; Tobacco Cessation Education Requested by Patient: No Hx Alcohol Use: Yes Alcohol type: beer and hard liquor Alcohol Intake Frequency: Holidays/Special Occasions Hx Substance Use: No Childhood Exposure to Second-Hand Smoke: No Dental Care, Regularly: Yes Physical Activity Frequency: 1-2 Times per Week Seatbelt Use: always Sunscreen Use: Yes Review of Systems All systems reviewed & are unremarkable except as noted in HPI & below Physical Exam Constitutional: well developed and well nourished; no acute distress Eyes: + anicteric sclerae Respiratory: normal respiratory effort; no respiratory distress Cardiovascular: Rate/Rhythm: regular rate Gastrointestinal (Abdomen): Percussion/Palpation: abdomen soft Musculoskeletal: Gait: normal gait Skin: no rashes, warm and dry Neurologic: awake Psychiatric: Orientation: alert
[2019-11-22] MEDS ORDERED: BUPIVACAINE 0.5 % 5 MG/1 ML MPF 30ML VIAL ONE (09:37)
[2019-11-22] MEDS ORDERED: ISOSULFAN BLUE 10 MG/ML VIAL 5 ML ONE (09:37)
--- NOTE | 2019-11-22 10:01 | Nuclear Medicine Report ---
LYMPHOSCINTIGRAPHY CLINICAL HISTORY: Left breast cancer. PROCEDURE: Using standard sterile technique, 4 intradermal and one deep injection of 0.5 mCi of Lymph oseek was placed in the left breast. The patient tolerated the procedure well. There were no immediat e complications. The patient was subsequently transported to the surgical suite. No imaging was obtai artur at the referring physician's request. IMPRESSION: Injection of 0.5 mCi of Lymphoseek in the left breast. ACT 112: Negative or not required by law. Electronically signed by: Tristan Rene M.D. 11/22/2019 10:00 AM
[2019-11-22] MEDS ORDERED: ePHEDrine sulfate 50 MG/ML AMP IV PRN (10:16)
[2019-11-22] MEDS ORDERED: METOCLOPRAMIDE HCL INJ 5 MG/ML 2 ML VIAL IV PRN (10:16)
[2019-11-22] MEDS ORDERED: PROMETHAZINE HCL 12.5 MG in SODIUM CHLORIDE 0.9% 50 ML IV PRN ×2 (10:16→13:49)
[2019-11-22] MEDS ORDERED: ONDANSETRON INJ 2 MG/ML 2 ML VIAL IV PRN ×2 (10:16→13:49)
[2019-11-22] MEDS ORDERED: HYDROmorphone INJ 2 MG/ML SYR/VIAL IV PRN (10:16)
[2019-11-22] MEDS ORDERED: ATROPINE SULFATE 0.1 MG/ML 10ML SYR IV PRN (10:16)
[2019-11-22] MEDS ORDERED: DEXAMETHASONE SOD INJ 4 MG/ML VIAL ONE (10:48)
[2019-11-22] MEDS ORDERED: PROPOFOL IV EMULSION 10 MG/ML 20 ML VIAL IV ONE ×2 (10:48→11:10)
[2019-11-22] MEDS ORDERED: LIDOCAINE HCL 2% 2 ML VIAL/AMP(20MG/ML) INFIL ONE (10:48)
[2019-11-22] MEDS ORDERED: ONDANSETRON INJ 2 MG/ML 2 ML VIAL ONE (10:48)
[2019-11-22] MEDS ORDERED: ACETAMINOPHEN 1000 MG/100 ML IV IV ONE (10:49)
--- NOTE | 2019-11-22 12:04 | Post Operative Brief Note ---
PG Immediate Post Op with CF Date of Surgery November 22, 2019 Pre & Post Diagnosis Operation Date: 11/22/19 10:30 Pre-Op Diagnosis: INVASIVE LOBULAR CARCINOMA, LEFT BREAST Post-Op Diagnosis: INVASIVE LOBULAR CARCINOMA, LEFT BREAST I identified the patient and participated in the time-out.: Yes Procedure Operation Date: 11/22/19 10:30 Actual Procedures p Left Breast Lumpectomy with Needle Localization and Needle Localization Left Axillary Lymph Node Biopsy, Left [place] Lymph Node Biopsy(Left) - Nilesh Lawrence MD, FACS Lt axillary dissection Surgeon Nilesh Lawrence MD, FACS [employer] Inspector Santana Flores Estimated Blood Loss 20 Findings Consistent with Post-Op Diagnosis Specimens Specimen Description: Permanent Specimen A: Left axillary lymph node with clip B. Additional left axillary tissue C. Left breast tissue / skin and nipple = anterior/ long silk =lateral / short silk = medial D. Additional inferior tissue left breast / long silk =lateral/ short silk =medial/ blue mann new margin E. additional superior tissue left breast / long silk= lateral/ short silk=medial / blue mann new margin Drains Jesus Alberto-Dkues Drain (15Fr Round)
[2019-11-22] MEDS ORDERED: ACETAMINOPHEN 1,000 MG/100 ML VIAL IV ONE (12:05)
[2019-11-22] MEDS: fentaNYL citrate 100 MCG/2 ML VIAL IV PRN ×2 (12:32→12:42)
--- NOTE | 2019-11-22 13:10 | Anesthesiology Progress Note ---
Date of Service November 22, 2019 Anesthesia Post Procedure Vital Signs Vital Signs: Temp Pulse Pulse Resp BP BP Pulse Ox 11/22/19 12:55 36.6 C 79 20 158/81 H 95 11/22/19 12:45 78 16 151/81 H 99 11/22/19 12:35 72 12 147/71 H 96 11/22/19 12:25 75 14 138/81 100 11/22/19 12:19 36.1 C L 83 21 151/73 H 100 11/22/19 10:03 36.8 C 80 20 130/81 96 Pain Intensity Left Breast: Pain Intensity: 2 Transfer of Care Handoff Completed per policy Notes Mental Status: alert / awake / arousable and participated in evaluation Patient Amnestic to Procedure: Yes Nausea / Vomiting: adequately controlled Pain: adequately controlled Airway Patency, RR, SpO2: stable & adequate BP & HR: stable & adequate Hydration State: stable & adequate Anesthetic Complications: no major complications apparent
--- NOTE | 2019-11-22 13:38 | Operative Report (OR) ---
DATE OF OPERATION: 11/22/2019 NAME OF OPERATION: Needle localization left breast lumpectomy with needle localization left sentinel lymph node biopsy and axillary dissection. PREOPERATIVE DIAGNOSES: Left breast cancer with metastatic left axillary lymph node. POSTOPERATIVE DIAGNOSES: Left breast cancer with metastatic left axillary lymph node. STAFF SURGEON: Nilesh Lawrence MD. TELEVISION SPECIALIST: Osvaldo Flores PA-C. ANESTHESIA: General. DESCRIPTION OF PROCEDURE: The patient was brought in the Operating Room and placed on the operating table in supine position. She had a needle and wire in the left breast and a wire in the left axilla. Her breast and axilla were prepped and draped in usual fashion. My therapist's assistant helped with prepping, draping, excision of the breast and axillary tissue and closure of the wounds. Initially, incision was made in the left axilla following the wire down using the Neoprobe and finding the localized lymph node, which was also the sentinel lymph node. It was then placed into a Faxitron and the clip was within the lymph node. This lymph node was sent permanent section as left axillary lymph node with clip. At this point, I felt because of having metastatic disease in left axilla, we should proceed with left axillary dissection. This was performed with left axillary tissue sent additional. At this point, lumpectomy was performed making an elliptical incision around the nipple areolar complex because of the tumor being very close to the areola. Dissection was carried down around the needle removing the initial tissue, which was left breast tissue with skin and nipple anterior, long silk suture lateral, short silk suture medial. This was also placed into the Faxitron and the clip was within the center of the tissue. Additional inferior and superior tissue was taken with the tissue marked long silk suture lateral, short silk suture medial, methylene blue new margin. Clips were placed at the level of the area of suspicion in the breast. Both sites were irrigated. Deep tissue reapproximated using 2-0 plain suture. Left axillary skin reapproximated using 4-0 nylon suture. Left breast closed using subcuticular 4-0 Monocryl with Steri-Strips. The patient was transferred to Recovery Room in stable condition. My therapist's assistant helped with prepping, draping, excision of the breast tissue, axillary tissue and closure of the wounds. I attest to the content of the Intraoperative Record and any orders documented therein. Any exception s are noted below.
[2019-11-22] MEDS ORDERED: ACETAMINOPHEN 325 MG TAB PO PRN (13:49)
[2019-11-22] MEDS ORDERED: SODIUM CHLORIDE 0.9% 1000ML 1,000 ML IV SCH (13:49)
[2019-11-22] MEDS ORDERED: MoRPHine SULFATE 2 MG/ML CARP IV PRN ×2 (13:49)
[2019-11-22] MEDS ORDERED: PROMETHAZINE HCL 25 MG in SODIUM CHLORIDE 0.9% 50 ML IV PRN (13:49)
[2019-11-22] MEDS ORDERED: IBUPROFEN 600 MG TAB PO PRN (13:49)
[2019-11-22] MEDS ORDERED: HYDROCODONE/ACETAMOPHEN 5/325MG TAB PO PRN ×2 (13:49)
--- NOTE | 2019-11-22 14:34 | Mammography Report ---
MULTIPLE NEEDLE LOCALIZATION LEFT BREAST: 11/22/2019 CLINICAL HISTORY: 64-year-old woman with biopsy-proven carcinoma in the 9:00 anterior/retroareolar le ft breast and biopsy-proven metastatic disease within a left axillary lymph node. She presents for pr eoperative needle and wire localization for the breast carcinoma and left axillary lymph node. COMPARISON: Comparison is made to exams dated: 09/20/2019 aspiration, 09/17/2019 ultrasound biopsy, ultrasound biopsy, 09/05/2019 mammogram, 09/03/2019 mammogram, and 08/23/2019 mammogram. PATIENT CONSENT: The risks of the procedure were explained to the patient and informed consent was ob tained both verbally and in writing. Specific risks include: Bleeding, infection, puncture of adjace nt structure, nontarget localization, dizziness/lightheadedness, medication reaction. A timeout was performed and the left 9:00/retroareolar breast and left axillary lymph node were agreed as the sites for preoperative localization. PROCEDURE DESCRIPTION: Prior left breast imaging was reviewed including screening mammograms from , 08/23/2019, diagnostic left mammograms and ultrasound 09/06/2019, ultrasound-guided core biopsy and post procedure mammograms 09/17/2019. First targeted ultrasound was performed in the left 9:00/r etroareolar breast and left axilla to identify the biopsy-proven carcinoma and metastatic disease wit hin the left axillary lymph node. Both lesions were identified and amenable to ultrasound-guided loc alization. With the patient in the supine position and left arm extended above her head, the skin of the left br east was cleansed with Betadine and sterile drapes were placed. 1% buffered lidocaine was administer ed subcutaneously and intraparenchymally as local anesthesia. A 5cm Rhodes II needle and wire combi nation was inserted into the left 9:00 breast via a medial to lateral approach through the taller sari n wide ill-defined hypoechoic mass with associated biopsy marker. Optimal positioning was confirmed a nd the wire was locked in place, leaving both the needle and wire within the breast, as per surgeon's preference. Then the patient was repositioned to a right lateral decubitus position with left arm remaining exten ded and the left axilla was cleansed with Betadine and sterile drapes were placed. Additional buffer ed lidocaine without epinephrine was administered in the left axilla as local anesthesia. A second 5 cm Rhodes 2 needle and wire combination was inserted through the previously biopsied lymph node and the needle was removed leaving the wire in place. Both procedures including approach and needle lengths were discussed with the operating surgeon prior to surgery. The patient tolerated the procedure well and there was no immediate complication. She was escorted to the hospital operating room in satisfactory condition. 2 specimen radiographs were obtained. The first radiograph demonstrates the left axillary lymph node with associated biopsy marker. The second specimen represents the breast specimen and it includes t he biopsy marker, irregular mass and localizing needle/wire combination, compatible with successful p reoperative localization and subsequent surgical excision at each site. Final surgical pathology is pending. IMPRESSION: NEEDLE LOCALIZATION Status post left 9:00/retroareolar breast and left axillary lymph node preoperative localization, as above. Both imaged specimen includes the intended abnormalities. Final surgical pathology is amalia Winslow M.D. ay/:11/22/2019 12:01:32 Attending Technologist: RT LizetR, M, [facility] Economic Adviser: Amanda Winslow, [facility]; RT LizetR, M, [facility]
--- NOTE | 2019-11-22 16:50 | Hospitalist Consultation ---
Date of Consultation November 22, 2019 Assessment & Plan (1) Breast cancer, left: S/p lumpectomy 11/21 Monitor for acute blood loss Pain control, dvt proph per primary (2) Allergic rhinitis: Continue home allergy medications (3) Uterine cancer: s/p hysterectomy at [place] in September Will be starting radiation therapy in the near future History of Present Illness Attending Physician: Nliesh Lawrence MD, [facility] History of Present Illness Ms. Howell is post lumpectomy. She is feeling well, no complaints. Pmhx: seasonal allergies, uterine cancer Family: uterine cancer, pancreatic cancer, colon cancer, heart disease Social: never smoker, no alcohol, lives with , retired teacher Allergies Allergy/AdvReac Type Severity Reaction Status Date / Time meperidine AdvReac Unknown NAUSEA AND Verified 11/22/19 10:10 VOMITING, severe drowsiness oxycodone AdvReac Unknown Hypotension Verified 11/22/19 10:10 & vertigo Home Medications Home Medications Medication Instructions Recorded Confirmed Type azelastine 137 mcg (0.1 %) nasal 2 sprays INTNAS BID #30 ml 05/18/19 11/22/19 Rx spray aerosol loratadine [Claritin] 10 mg PO DAILY 11/16/19 11/22/19 History multivitamin 1 tab PO DAILY 11/16/19 11/22/19 History triamcinolone acetonide [Nasacort] 2 spray INTRANASAL DAILY 11/16/19 11/22/19 History Patient History Medical History (Updated 11/22/19 @ 16:49 by ROSA Carrizales) Allergic rhinitis (Acute) Asthma, mild intermittent (Acute) Breast cancer left breast Depression no medications History of anemia History of bronchitis Primary osteoarthritis of right knee (Acute) Uterine cancer October 2019 Surgical History (Updated 11/22/19 @ 15:55 by Sho Houston RN) H/O colonoscopy H/O lumpectomy (11/22/19) Needle localization left breast lumpectomy with needle localization left sentinel lymph node biopsy and axillary dissection. Dr. Lawrence 11/22/19 History of knee replacement (01/04/11) Left knee History of knee replacement (07/01/17) right knee History of tubal ligation (~12/1977) Hx of cholecystectomy (~1993) S/P MARIBETH-BSO October 2019 Family History Mother Colorectal cancer Diabetes Hypertension Breast cancer Ovarian cancer Skin cancer (melanoma) Cancer Father Heart disease Cancer Grandmother Colorectal cancer Brother Diabetes Heart disease Hypertension Grandfather (Maternal) Heart disease Grandfather (Paternal) Heart disease Sister Hypertension Social History (Updated 09/29/19 @ 11:44 by Cynthia Garcia RN) Preferred Language: Sinhala Communication Ability: Effective Visual Impairment: Limited Hearing Ability: Normal Skin Toggler Required: No Beliefs That Will Affect Care: None marital status: Current Living Situation: Spouse current occupational status: retired current occupation: Teacher Feels Safe at Home: Yes Safety Concerns: Feels Safe At This Time Smoking Status: Never smoker Do You Dip or Chew Tobacco: No ; Second Hand Exposure: Yes (hx) ; Tobacco Cessation Education Requested by Patient: No Hx Alcohol Use: Yes Alcohol type: beer and hard liquor Alcohol Intake Frequency: Holidays/Special Occasions Hx Substance Use: No Childhood Exposure to Second-Hand Smoke: No Dental Care, Regularly: Yes Physical Activity Frequency: 1-2 Times per Week Seatbelt Use: always Sunscreen Use: Yes Results & Data Results & Data ([facility]) Vital Signs (Past 12 Hours) Vital Signs Temp Pulse Pulse Resp BP BP Pulse Ox 11/22/19 15:55 36.6 C 79 20 138/74 95 11/22/19 14:56 36.7 C 83 16 136/79 95 11/22/19 14:20 82 16 124/75 94 11/22/19 13:30 80 14 154/76 H 95 11/22/19 13:15 76 12 140/84 96 11/22/19 13:05 78 15 156/76 H 95 11/22/19 12:55 36.6 C 79 20 158/81 H 95 11/22/19 12:45 78 16 151/81 H 99 11/22/19 12:35 72 12 147/71 H 96 11/22/19 12:25 75 14 138/81 100 11/22/19 12:19 36.1 C L 83 21 151/73 H 100 11/22/19 10:03 36.8 C 80 20 130/81 96 PG Care Time/CCT Total # of Minutes Spent Total Time Spent with Patient: Total time spent is greater than 50% in coordination of care (as documented) at patient's floor/unit and/or counseling patient: Coding Level of Care Code 37112 Inpt Consult Level 3 Diagnoses Breast cancer, left C50.912 Allergic rhinitis J30.9 Uterine cancer C55
[2019-11-22] MEDS: CEFAZOLIN 2000MG 2,000 MG/15 ML SYR IV SCH (20:08)
[2019-11-23] MEDS: CEFAZOLIN 2000MG 2,000 MG/15 ML SYR IV SCH ×2 (02:51→11:22)
[2019-11-23 06:42] LABS: Albumin Level 3.4 gm/dl (3.4-5.0); BUN Creatinine Ratio 15.3 (10-20); Calcium 8.5 mg/dl (8.5-10.1); Creatinine Clr Calc Pharmacy 93.7 ml/min; Est GFR (African American) 96.9; Est GFR (Non-African American) 83.6; Potassium 4.2 mmol/L (3.5-5.1)
[2019-11-23 06:45] LABS: Bilirubin,Total 0.4 mg/dl (0.2-1); Globulin 3.3 gm/dl (2.5-4.0); Phosphorus 4.1 mg/dl (2.5-4.9); Total Protein 6.7 gm/dl (6.4-8.2)
[2019-11-23 07:54] VITALS: PULSE 54; TEMP 97.7; O2SAT 99
--- NOTE | 2019-11-23 08:04 | Anesthesiology Progress Note ---
Date of Service November 23, 2019 Anesthesia Post Procedure Vital Signs Vital Signs: Temp Pulse Pulse Resp BP BP Pulse Ox 11/23/19 07:54 36.5 C 54 L 16 134/74 99 11/23/19 04:05 36.9 C 68 16 111/65 97 11/22/19 23:30 36.8 C 70 20 144/72 H 95 11/22/19 21:19 36.6 C 66 16 143/67 H 95 11/22/19 17:25 36.7 C 77 16 142/77 H 95 11/22/19 15:55 36.6 C 79 20 138/74 95 11/22/19 14:56 36.7 C 83 16 136/79 95 11/22/19 14:20 82 16 124/75 94 11/22/19 13:30 80 14 154/76 H 95 11/22/19 13:15 76 12 140/84 96 11/22/19 13:05 78 15 156/76 H 95 11/22/19 12:55 36.6 C 79 20 158/81 H 95 11/22/19 12:45 78 16 151/81 H 99 11/22/19 12:35 72 12 147/71 H 96 11/22/19 12:25 75 14 138/81 100 11/22/19 12:19 36.1 C L 83 21 151/73 H 100 11/22/19 10:03 36.8 C 80 20 130/81 96 Pain Intensity Left Breast: Pain Intensity: 2 Notes Mental Status: alert / awake / arousable and participated in evaluation Patient Amnestic to Procedure: Yes Nausea / Vomiting: adequately controlled Pain: adequately controlled Airway Patency, RR, SpO2: stable & adequate BP & HR: stable & adequate Hydration State: stable & adequate Anesthetic Complications: no major complications apparent and Pt Satisfied with anesthetic care
[2019-11-23 10:42] VITALS: BP 130/81
--- NOTE | 2019-11-23 11:10 | Hospitalist Progress Note ---
Date of Service November 23, 2019 Assessment & Plan (1) Breast cancer, left: S/p lumpectomy 11/21 Pain control, dvt proph per primary (2) Allergic rhinitis: Continue home allergy medications (3) Uterine cancer: s/p hysterectomy at [place] in September Will be starting radiation therapy in the near future Medicine will sign off at this time. Please call with any questions or concerns. Admission and Anticipated Discharge Date Admission Date: November 22, 2019 Supervising Physician Co-Signing Physician Notes I supervised Lisa Andersen NP on this patient's care. I examined the patient today independently of her. I discussed the plan of care with her with the plan being as written in her note except for any following changes/exceptions: None. In no major pain today. Good spirits. Feels she has good amount of support at home for further wound care and dressings/drain care. Subjective Ms. Howell is feeling well today, no pain. Looking forward to going home. ROS Constitutional: no chills, aches, sweats or fever Respiratory: no sob,cough, sputum, or wheezing Cardiac: no chest pain, palpitations, edema, orthopnea or lightheadedness GI: no abdominal pain, nausea, vomiting, diarrhea or constipation : no dysuria or hesitancy Extremities: no joint pain or weakness Skin: no rash All other systems reviewed and negative Physical Exam Physical Exam: General: no distress Eyes: normal inspection, PERLL Respiratory: chest non tender, clear to auscultation, normal breath sounds, no respiratory distress, no accessory muscle use Cardiac: regular rate and rhythm, no rub or gallop, no murmur, no edema, no jvd GI/: active bowel sounds, no abd pain or tenderness, soft, non distended Extremities: normal range of motion, normal strength, non tender Neuro/Psych: alert and oriented x 3, normal mood and affect Skin: normal color, dry Results & Data Results & Data ([facility]) Vital Signs (Past 12 Hours) Vital Signs Temp Pulse Resp BP BP Pulse Ox 11/23/19 10:41 36.5 C 54 L 16 130/81 134/74 99 11/23/19 07:54 36.5 C 54 L 16 134/74 99 11/23/19 04:05 36.9 C 68 16 111/65 97 11/22/19 23:30 36.8 C 70 20 144/72 H 95 PG Care Time/CCT Total # of Minutes Spent Total Time Spent with Patient: Total time spent is greater than 50% in coordination of care (as documented) at patient's floor/unit and/or counseling patient: Coding Level of Care Code 87038 Subseq Hosp Care Lvl 2 Diagnoses Breast cancer, left C50.912 Allergic rhinitis J30.9 Uterine cancer C55
--- NOTE | 2019-11-24 11:34 | Discharge Summary (DS) ---
PRINCIPAL DIAGNOSIS: Left breast cancer. PROCEDURES: The patient underwent left lumpectomy with sentinel lymph node and left axillary dissection. HISTORY OF PRESENT ILLNESS: The patient is a 64-year-old female with biopsy proven left breast cancer and also positive metastatic disease to the left axillary lymph node. HOSPITAL COURSE: She was brought into the hospital on 11/22/2019 where she underwent needle localization left lumpectomy with sentinel lymph node biopsy and left axillary dissection. She tolerated the procedure very well, did well overnight in the hospital, was ready for discharge the next day to be followed up in the surgical clinic within 1 week as she did have a drain in place in the axilla.
== END 2019-11-23 13:22 | disposition home or self-care (01) ==
LOC: 3E 07:35 → ASU 07:35

== ENCOUNTER 2020-09-12 06:58 | Observation (INO) ==
--- NOTE | 2020-08-11 13:16 | PAT Medication Instructions ---
Medication Instructions Date of Service August 11, 2020 Home Medications Medication Instructions Recorded azelastine 137 mcg (0.1 %) nasal 2 spray INTNAS BID #30 ml 06/26/20 spray aerosol loratadine [Claritin] 10 mg PO DAILY multivitamin 1 tab PO DAILY triamcinolone acetonide [Nasacort] 2 spray INTRANASAL DAILY calcium carb 300 mg-D3 800 unit-mag ox 25 mg-cop winder 0.5 mg-antelmo-Zn tablet 1 tab PO QAM letrozole 2.5 mg tablet 2.5 mg PO QAM azelastine 137 mcg (0.1 %) nasal spray aerosol 2 spray INTNAS BID meloxicam 15 mg PO UD PRN Continue as directed letrozole 2.5 mg tablet 2.5 mg PO QAM (unless surgeon directs otherwise) ASK your surgeon for instructions meloxicam 15 mg PO UD PRN STOP taking 2 weeks before surgery calcium carb 300 mg-D3 800 unit-mag ox 25 mg-cop winder 0.5 mg-antelmo-Zn tablet 1 tab PO QAM DO NOT take the morning of surgery loratadine [Claritin] 10 mg PO DAILY multivitamin 1 tab PO DAILY Take morning of surgery With a small sip of water, OTHERWISE NOTHING TO EAT OR DRINK AFTER MIDNIGHT: triamcinolone acetonide [Nasacort] 2 spray INTRANASAL DAILY azelastine 137 mcg (0.1 %) nasal spray aerosol 2 spray INTNAS BID Take evening before surgery azelastine 137 mcg (0.1 %) nasal spray aerosol 2 spray INTNAS BID Other Notes If you have any questions please call us at [phone] or [phone] or [phone] or [phone]
--- NOTE | 2020-08-16 10:40 | Anesthesiology Consultation ---
Date of Service August 16, 2020 Assessment & Plan (1) Encounter for pre-operative examination: Chart Review Chart Review: Acceptable Risk for Surgery (pending preop Covid testing ) and Patient seen in Pre Admission Testing Per PAT appt on 08/16/20, pt denies any recent travel. No known Covid positive contacts or Covid related symptoms. No known Covid infection in the past 90 days. Preop Covid testing scheduled 09/05/20= will await results. Educated on importance of self quarantining, social distancing and wearing mask in public both for the patient and household contacts. Seen by PCP 08/11/20= seen for follow-upaware of upcoming hip surgery. "Due to severe osteoarthritis in the right worse than left hip you are to undergo right total hip replacement by Dr. Olguin on September 12, 2020. Based on available information you would be risk stratified as low risk for cardiopulmonary event based on [place] [employer]/[place] [employer] guidelines with precautions mentioned below." Leg edema appears to be venous insufficiency as a result of bilateral knee replacementsrecommend leg elevation and support stockings. Will check labs. Echocardiogram not indicated at this time. EKG done at appointment 08/11/2020 showed no change from May 2019. Left breast lumpectomy with needle localization, sentinel LN biopsy 11/22/19= Done under [facility] with LMA #4. Teaching & Discussion Pre-Anesthesia Teaching/Discussion Notes: Instructed NPO after midnight before surgery,except medications with 15 cc of water. Medication instructions p rovided according to the PAT guidelines. History Surgery Operation Date: 09/12/20 08:55 Proposed Procedures p Right Total Hip Arthroplasty - Jeff Frank DO Height/Weight Height: 5 ft 4 in Weight: 114.5 kg Allergies Allergy/AdvReac Type Severity Reaction Status Date / Time meperidine AdvReac Unknown NAUSEA AND Verified 08/11/20 09:50 VOMITING, severe drowsiness oxycodone AdvReac Unknown Hypotension Verified 08/11/20 09:50 & vertigo Medications Home Medications Medication Instructions Recorded Confirmed Last Taken loratadine [Claritin] 10 mg PO DAILY 11/16/19 08/11/20 11/21/19 21:00 multivitamin 1 tab PO DAILY 11/16/19 08/11/20 11/21/19 21:00 triamcinolone acetonide [Nasacort] 2 spray INTRANASAL DAILY 11/16/19 08/11/20 Unknown calcium carb 300 mg-D3 800 1 tab PO QAM 12/29/19 08/11/20 Unknown unit-mag ox 25 mg-messenger copy 0.5 mg-antelmo-Zn tablet letrozole 2.5 mg tablet 2.5 mg PO QAM 12/29/19 08/11/20 Unknown azelastine 137 mcg (0.1 %) nasal 2 spray INTNAS BID #30 ml 06/26/20 08/11/20 Unknown spray aerosol meloxicam 15 mg PO UD PRN 08/10/20 08/11/20 Unknown Past Medical History Medical History (Updated 08/16/20 @ 12:17 by Tessa Benito PA-C) Asthma, mild intermittent HX SEASONAL ASTHMA Breast cancer DX SEPTEMBER 2019 left breast- S/P LEFT PARTIAL MASTECTOMY AND LUMPECTOMY AND RADIATION TX ( RADIATION FINISHED MAR 19 2020) DENIES LEFT LIMB RESTRICTION Edema Evaluated by PCP- felt venous insufficiency as a results of bilateral TKAs- recommending LE elevation and support stockings Uterine cancer (10/14/19) DX 10/2019 , SURGICAL TX AND HX BRACHYTHERAPY (LAST TX MAR 29 2020) Exercise / Class Metabolic Activity II 4-5 Yardwork/Stairs/Walk up hill (one flight of stairs - no chest pain or SOB ) Past Family History Family History Mother Skin cancer (melanoma), Onset Age: 76 Left Shoulder - Mohs Diabetes Breast cancer, Onset Age: 64 Lumpectomy only Colorectal cancer, Onset Age: 57 Resection Hypertension Uterine cancer, Onset Age: 50 Hysterectomy Father , Passed age 77 of COPD Heart disease Melanoma On head (was a trejo) Grandmother , Passed age 77 of metastatic cancer (unknown primary) No problems noted. Brother Diabetes Heart disease Hypertension Grandfather (Maternal) Heart disease Grandfather (Paternal) Heart disease Sister Hypertension Brother Diabetes Hypertension Sister No problems noted. Sister Melanoma Daughter Family history of thyroid cancer Son No problems noted. Past Surgical History Surgical History H/O colonoscopy H/O lumpectomy (11/22/19) Needle localization left breast lumpectomy with needle localization left sentinel lymph node biopsy and axillary dissection. Dr. Lawrence 11/22/19 History of knee replacement (01/04/11) Left knee History of knee replacement (07/01/17) right knee History of tubal ligation (~12/1977) Hx of cholecystectomy (~1993) S/P MARIBETH-BSO (~10/2019) Past Anesthesia History No Hx of Anesthesia Complications and No Family Hx of Anesthesia Complications History of PONV No Hx of PONV and No Hx of Motion Sickness Social History Smoking Status: Never smoker Do You Dip or Chew Tobacco: No Hx Alcohol Use: No Hx Substance Use: No substance use type: does not use Review of Systems Occ snoring- hx of sleep study- no CHUCHO. More related to congestion from allergies if aggravated. LE edema- following with PCP- felt venous insufficiency- improved with LE elevation Patient denies chest pain, shortness of breath, dyspnea on exertion, reflux, cough, wheezing, palpitations. No hx of seizures, stroke, DE. No hx of blood clots or blood transfusions Physical Exam Vital Signs VITALS BP 137/88 P 68 TEMP 98.0 SP02 96% RESP 16 Constitutional no acute distress ENMT Mouth: no TMJ clicking Thyromental Distance: > or= 3.5 Finger Breadths (3.5) Mallampati Class: I Caps on molars Permanent right upper bridge Neck + short neck, + thick neck and + limited neck extension (significant ) Respiratory normal respiratory effort; no respiratory distress Auscultation: lungs clear to auscultation bilaterally; no wheezes Cardiovascular Rate/Rhythm: regular rate and regular rhythm Heart Sounds: no murmur Vessels: no carotid bruit Musculoskeletal Spine: no pain with cervical ROM Extremities: extremities normal to inspection Psychiatric Orientation: alert Testing Laboratory Results 08/16/20 11:13 08/16/20 11:13 PT 10.1 Seconds (9.0-12.0) 08/16/20 11:13 INR 1.0 (0.9-1.1) 08/16/20 11:13 APTT 23.6 Seconds (21.0-31.0) 08/16/20 11:13 Hemoglobin A1c 5.4 % (4.5-5.6) 08/16/20 11:13 Urine Color Yellow 08/16/20 11:13 Urine Appearance Clear (Clear) 08/16/20 11:13 Urine pH 6.5 (4.5-7.5) 08/16/20 11:13 Ur Specific [place] 1.009 (1.000-1.030) 08/16/20 11:13 Urine Protein Negative (Negative) 08/16/20 11:13 Urine Glucose (UA) Negative (Negative) 08/16/20 11:13 Urine Ketones Negative (Negative) 08/16/20 11:13 Urine Nitrite Negative (Negative) 08/16/20 11:13 Ur Leukocyte Esterase Negative (Negative) 08/16/20 11:13 Blood Type A Positive 08/16/20 11:13 Antibody Screen NEGATIVE 08/16/20 11:13 Electrocardiogram Date: 08/11/20 SR at 72bpm. Normal EKG. No changed compared to 05/18/19 per PCP Chest X-Ray Date: 08/16/20 Findings: + NAD
--- NOTE | 2020-08-16 12:25 | XRay Report ---
XR chest Pre-admission PA/Lat CLINICAL HISTORY: Preoperative chest COMPARISON STUDY: June 03, 2017 FINDINGS: The cardiac and mediastinal contours are normal. There is no evidence of focal pulmonary co nsolidation. There is no evidence of failure. No pleural effusions are visualized.[Degenerative chairez es are present within the dorsal spine. IMPRESSION: No active disease in the chest. ACT 112: Negative or not required by law. Electronically signed by: Mehdi Ghotra M.D. 08/16/2020 12:24 PM
[2020-08-16 12:40] LABS: Appearance Urine Clear (Clear); Bilirubin Urine Negative (Negative); Blood Urine Negative (Negative); Color Urine Yellow; Glucose Urine UA Negative (Negative); Ketones Urine Negative (Negative); Leukocyte Esterase Urine Negative (Negative); Nitrite Urine Negative (Negative); Protein Urine Negative (Negative); Specific Gravity Urine 1.009 (1.000-1.030); Urobilinogen Urine Negative (Negative); pH Urine 6.5 (4.5-7.5)
[2020-08-16 12:41] LABS: Basophils # (auto) 0.01 K/uL (0-0.2); Basophils % (auto) 0.2 %; Eosinophils # (auto) 0.62 K/uL (0-0.5); Eosinophils % (auto) 11.4 %; Hematocrit (blood only) 38.9 % (37-47); Hemoglobin 13.5 g/dL (12.0-16.0); Lymphocytes # (auto) 0.91 K/uL (1.2-3.4); Lymphocytes % (auto) 16.7 %; Mean Corpuscular Hemoglobin 31.9 pg (25-34); Mean Corpuscular Hgb Conc 34.7 g/dL (32-36); Mean Platelet Volume 9.6 fL (7.4-10.4); Monocytes % (auto) 3.7 %; Platelet Count 266 K/uL (130-400); RDW Coefficient of Variation 13.4 % (11.5-14.5); RDW Standard Deviation 45.4 fL (36.4-46.3); Red Blood Count 4.23 M/uL (4.2-5.4); White Blood Count 5.44 K/uL (4.8-10.8)
[2020-08-16 12:49] LABS: Albumin Level 3.8 gm/dl (3.4-5.0); BUN Creatinine Ratio 15.6 (10-20); Calcium 9.1 mg/dl (8.5-10.1); Creatinine Clr Calc Pharmacy 96.7 ml/min; Est GFR (African American) 102.9; Est GFR (Non-African American) 88.8
[2020-08-16 13:01] LABS: Partial Thromboplastin Ratio 0.9; Partial Thromboplastin Time 23.6 Seconds (21.0-31.0); Prothrombin Time 10.1 Seconds (9.0-12.0)
[2020-08-16 14:00] LABS: Estimated Average Glucose 108 mg/dl; Hemoglobin A1C 5.4 % (4.5-5.6)
--- NOTE | 2020-09-09 13:22 | History & Physical Report ---
Date of Service September 12, 2020 Assessment & Plan (1) Degenerative joint disease of right hip: I have indicated the patient for right total hip replacement. The risks, benefits and complications of surgery were explained to the patient which include but not limited to infection, acute blood loss, DVT/PE, injury to nerves, vessels, bone, soft tissue, arthrofibrosis, chronic pain, failure of the prosthesis, hip dislocation, leg length discrepancy, need for additional surgery, cardiac and pulmonary events and . The patient wished to proceed with surgery and informed consent was obtained at this time. We will plan for Lovenox post-operatively for DVT prophylaxis. Hx breast Ca. Upon discharge the patient will be discharged home with home health services. Appropriate clearances by PCP, oncology were obtained. History of Present Illness Chief Complaint: Right hip pain/DJD Primary Care Provider: Daniel Carter MD The patient is a 65 year old female who presents with complaints of severe right hip pain and DJD. The patient has failed outpatient conservative treatments to this point which included NSAIDs, HEP. The patient's pain and limited function have progressed to the point where they severely hinder their activities of daily living and they no longer tolerate exercise programs. They are requesting to proceed with total hip replacement surgery. Allergies Allergy/AdvReac Type Severity Reaction Status Date / Time meperidine AdvReac Unknown NAUSEA AND Verified 09/12/20 07:44 VOMITING, severe drowsiness oxycodone AdvReac Unknown Hypotension Verified 09/12/20 07:44 & vertigo Home Medications Medication Instructions Recorded Confirmed Type loratadine [Claritin] 10 mg PO DAILY 11/16/19 09/12/20 History multivitamin 1 tab PO DAILY 11/16/19 09/12/20 History triamcinolone acetonide [Nasacort] 2 spray INTRANASAL DAILY 11/16/19 09/12/20 History calcium carb 300 mg-D3 800 1 tab PO QAM 12/29/19 09/12/20 History unit-mag ox 25 mg-copying machine mechanic 0.5 mg-antelmo-Zn tablet letrozole 2.5 mg tablet 2.5 mg PO QAM 12/29/19 09/12/20 History azelastine 137 mcg (0.1 %) nasal 2 spray INTNAS BID #30 ml 06/26/20 09/12/20 Rx spray aerosol meloxicam 15 mg PO UD PRN 08/10/20 09/12/20 History Past Med/Surg History Medical History (Updated 09/12/20 @ 08:37 by Tristan Lucas MD) Asthma, mild intermittent HX SEASONAL ASTHMA Breast cancer DX SEPTEMBER 2019 left breast- S/P LEFT PARTIAL MASTECTOMY AND LUMPECTOMY AND RADIATION TX ( RADIATION FINISHED MAR 19 2020) DENIES LEFT LIMB RESTRICTION Edema Evaluated by PCP- felt venous insufficiency as a results of bilateral TKAs- recommending LE elevation and support stockings Morbid obesity Uterine cancer (10/14/19) DX 10/2019 , SURGICAL TX AND HX BRACHYTHERAPY (LAST TX MAR 29 2020) Surgical History H/O colonoscopy H/O lumpectomy (11/22/19) Needle localization left breast lumpectomy with needle localization left sentinel lymph node biopsy and axillary dissection. Dr. Lawrence 11/22/19 History of knee replacement (01/04/11) Left knee History of knee replacement (07/01/17) right knee History of tubal ligation (~12/1977) Hx of cholecystectomy (~1993) S/P MARIBETH-BSO (~10/2019) Family History Mother Skin cancer (melanoma), Onset Age: 76 Left Shoulder - Mohs Diabetes Breast cancer, Onset Age: 64 Lumpectomy only Colorectal cancer, Onset Age: 57 Resection Hypertension Uterine cancer, Onset Age: 50 Hysterectomy Father , Passed age 77 of COPD Heart disease Melanoma On head (was a trejo) Grandmother , Passed age 77 of metastatic cancer (unknown primary) No problems noted. Brother Diabetes Heart disease Hypertension Grandfather (Maternal) Heart disease Grandfather (Paternal) Heart disease Sister Hypertension Brother Diabetes Hypertension Sister No problems noted. Sister Melanoma Daughter Family history of thyroid cancer Son No problems noted. Social History Smoking Status: Never smoker Second Hand Exposure: Yes (hx); Do You Dip or Chew Tobacco: No; Hx Alcohol Use: No Hx Substance Use: No Preferred Language: Icelandic Communication Ability: Effective Visual Impairment: Limited Hearing Ability: Normal Prescriptionist Required: No Beliefs That Will Affect Care: None marital status: Current Living Situation: Spouse current occupational status: retired current occupation: Teacher Other Information That Helps Us Care for You: No Feels Safe at Home: Yes Childhood Exposure to Second-Hand Smoke: No Dental Care, Regularly: Yes Physical Activity Frequency: 1-2 Times per Week Seatbelt Use: always Sunscreen Use: Yes Assistive Devices: Glasses Review of Systems Review of Systems: All systems reviewed & are unremarkable except as noted in HPI & below Constitutional: as per Subjective / HPI Physical Exam Physical Exam: RLE NVSI +EHL/FHL/TA/GS SILT grossly, +2 DP pulse, compartments soft NT, limited painful ROM of the hip, antalgic gait. Constitutional: WD/WN, vitals as above Eyes: PERRL, conjunctivae normal, anicteric sclerae ENMT: external ear and nose normal, oropharynx normal Neck: trachea midline, no thyromegaly Respiratory: normal respiratory effort, lungs clear to auscultation Cardiovascular: RRR, no murmur, no edema Gastrointestinal (Abdomen): normal bowel sounds, soft, nontender, no hepatosplenomegaly Musculoskeletal: no cyanosis or clubbing, extremities motor strength 5/5 Skin: no rashes, warm and dry Neurologic: patellar DTR's 2+ bilat, sensation intact Psychiatric: A+Ox3, euthymic affect Lymphatic: no cervical or axillary lymphadenopathy Results & Data Results & Data ([facility] [place]) Diagnostic Findings Multiple views of the hip demonstrates severe DJD with complete loss of the joint space. +osteophytes, +sclerosis, +subchondral cysts. Pre Admission Testing Addendum Laboratory Results 08/16/20 11:13 08/16/20 11:13 PT 10.1 Seconds (9.0-12.0) 08/16/20 11:13 INR 1.0 (0.9-1.1) 08/16/20 11:13 APTT 23.6 Seconds (21.0-31.0) 08/16/20 11:13 Hemoglobin A1c 5.4 % (4.5-5.6) 08/16/20 11:13 Urine Color Yellow 08/16/20 11:13 Urine Appearance Clear (Clear) 08/16/20 11:13 Urine pH 6.5 (4.5-7.5) 08/16/20 11:13 Ur Specific [place] 1.009 (1.000-1.030) 08/16/20 11:13 Urine Protein Negative (Negative) 08/16/20 11:13 Urine Glucose (UA) Negative (Negative) 08/16/20 11:13 Urine Ketones Negative (Negative) 08/16/20 11:13 Urine Nitrite Negative (Negative) 08/16/20 11:13 Ur Leukocyte Esterase Negative (Negative) 08/16/20 11:13 Blood Type A Positive 08/16/20 11:13 Antibody Screen NEGATIVE 08/16/20 11:13
[~2020-09-12 06:58] MED LIST changes: +ACETAMINOPHEN 500 MG TAB PO SCH; +BUPIVACAINE 0.5 % 5 MG/1 ML PF 10ML VIAL ONE; -CEFAZOLIN 2000MG 2,000 MG/15 ML SYR IV SCH; +CeleBREX 200 MG CAP PO SCH; +FAMOTIDINE 20 MG TAB PO SCH; +GABAPENTIN 300 MG CAP PO SCH; -LR 15ML/HR IV SCH; +LR 500ML BOLUS, THEN 15ML/HR IV SCH; +METOCLOPRAMIDE HCL 10 MG TABLET PO SCH; +ROPIVACAINE 0.5% HCL/PF 150 MG, BUPIVACAINE 0.75% MPF 20 ML, EPINEPHrine 30MG/30ML (OR ... INSTIL SCH; +TRANEXAMIC ACID 1,000 MG **IV Intra-op IV SCH; +TRANEXAMIC ACID 1,000 MG **IV Pre-op IV SCH; +ceFAZolin 2000MG 2,000 MG/15 ML SYR IV SCH; +oxyCODONE HCL 10 MG TABCR (OxyCONTIN) PO SCH
[2020-09-12] MEDS ORDERED: ONDANSETRON INJ 2 MG/ML 2 ML VIAL IV PRN ×2 (08:38→12:52)
[2020-09-12] MEDS ORDERED: PHENYLEPHRINE 100MCG/ML 5ML SYR IV PRN (08:38)
[2020-09-12] MEDS ORDERED: LABETALOL HCL IV 5 MG/ML 20ML IV PRN (08:38)
[2020-09-12] MEDS ORDERED: fentaNYL citrate 100 MCG/2 ML VIAL IV PRN (08:38)
[2020-09-12] MEDS ORDERED: ePHEDrine sulfate 50 MG/ML AMP IV PRN (08:38)
[2020-09-12] MEDS ORDERED: ATROPINE SULFATE 0.1 MG/ML 10ML SYR IV PRN (08:38)
[2020-09-12] MEDS ORDERED: MIDAZOLAM HCL 1 MG/ML 2ML VIAL ONE ×3 (09:08→11:31)
--- NOTE | 2020-09-12 09:31 | History & Physical Bridge Note ---
Date of Service September 12, 2020 History & Physical Bridge Note I have examined the patient, reviewed the History & Physical and in the interval since the performance of the History & Physical I have noted the following changes of clinical significance: no changes noted
[2020-09-12] MEDS ORDERED: ORTHO JOINT ANESTHETIC ONE (09:39)
[2020-09-12] MEDS ORDERED: BACITRACIN INJ 50,000 UNIT VIAL ONE (09:39)
[2020-09-12] MEDS ORDERED: KETAMINE 50 MG/5 ML SYRINGE ONE (10:22)
[2020-09-12] MEDS ORDERED: ONDANSETRON INJ 2 MG/ML 2 ML VIAL ONE (10:26)
[2020-09-12] MEDS ORDERED: PROPOFOL IV EMULSION 10 MG/ML 20 ML VIAL IV ONE ×2 (10:26→11:13)
[2020-09-12] MEDS ORDERED: ePHEDrine sulfate 50 MG/ML SYR ONE (11:12)
[2020-09-12] MEDS ORDERED: PHENYLEPHRINE 100MCG/ML 5ML SYR ONE (11:12)
--- NOTE | 2020-09-12 11:44 | Post Operative Brief Note ---
Immediate Post Op Note v1 Date of Surgery September 12, 2020 Pre & Post Diagnosis Operation Date: 09/12/20 09:15 Pre-Op Diagnosis: Osteoarthritis, Right Hip Post-Op Diagnosis: Osteoarthritis, Right Hip I identified the patient and participated in the time-out.: Yes Procedure Operation Date: 09/12/20 09:15 Actual Procedures p Right Total Hip Arthroplasty(Right) - Jeff Frank DO Surgeon Jeff Frank DO Floor Technician Dante Machuca Estimated Blood Loss 250 Findings Consistent with Post-Op Diagnosis Fluids See anesthesia report Specimens Femoral head Anesthesia Type Spinal MAC Complications none Disposition Disposition: Recovery Room Overlapping Procedure I was present for: the critical portions of procedure. I was immediately available: during the entire case. Back up surgeon: was not required during procedure.
--- NOTE | 2020-09-12 11:46 | Operative Report ---
Post Operative Report Pre & Post Diagnosis Operation Date: 09/12/20 09:15 Pre-Op Diagnosis: Osteoarthritis, Right Hip Post-Op Diagnosis: Osteoarthritis, Right Hip I identified the patient and participated in the time-out.: Yes Procedure Operation Date: 09/12/20 09:15 Actual Procedures p Right Total Hip Arthroplasty(Right) - Jeff Frank DO Surgeon Jeff Frank, Master At [employer] Dante Machuca Estimated Blood Loss 250 Findings Consistent with Post-Op Diagnosis Fluids See anesthesia report Specimens Femoral head Anesthesia Type Spinal MAC Complications none Disposition Disposition: Recovery Room Indications The patient is a 66-year-old female who presents with severe progressive right hip DJD who has failed outpatient conservative treatments. I indicated the patient for a total hip replacement and the risks and benefits were explained in detail which included but not limited to infection, bleeding, blood clot, damage to surrounding bone, nerves, vessels, soft tissue, hip dislocation, failure of the prosthesis, leg length discrepancy, need for additional surgery and . The patient agreed to proceed with replacement of the hip and informed consent was obtained. Appropriate clearances were obtained. Description of Procedure COMPONENTS USED: Neema Biomet hip system: Acetabulum size 50, femur size 6 standard offset, femoral head 36-3.5, liner 50x36, acetabular screw 0.5 mm x 1. Following induction of adequate spinal anesthesia, the patient was transferred to the OR table and placed in lateral decubitus position with left hip down. The right hip was prepped and draped in the typical sterile fashion. A timeout was performed, patient identified and site chris confirmed. Appropriate antibio tics were given. A standard posterolateral/Raheem-Langenbeck incision was made. Subcutaneous tissue was sharply dissected. Electrocautery was utilized for hemostasis. The fascia was incised throughout the length of the wound and retracted with the Charnley retractor. The bursa was taken down and the short external rotators were identified. The piriformis was tagged with #1 Vicryl. The short external rotators and capsule were divided from the posterior aspect of the femur using electrocautery. The posterior capsule was tagged with #1 Vicryl. Both external rotators and posterior capsule were swept posterior and protected, along with protecting the sciatic nerve. The hip was dislocated by flexion and internally rotation in a controlled manner and exposure of the femoral neck was gained with an old-style Hohmann and a blunt cobra retractor. A femoral cutting guide was utilized for making the appropriate level femoral neck cut with reciprocating saw. The femoral head was removed, measured and reserved on the back table. Next, attention was turned to the acetabulum. A posterior and anterior offset retractor was placed to gain adequate exposure. Acetabular labrum as well as posterior capsule elements were removed using electrocautery and forceps. Fovea centralis was cleared of all soft tissue. Sequential reaming was performed starting at 44 mm and carried up to a 49 mm and decision was made to proceed with impaction of a 50 mm G7 Osteo-Ti cup. This was impacted and held using a single 25 mm acetabular screw. The trial acetabular liner was placed at this time. Next, attention was turned to the proximal femur where a Bovie and pickup was used to further clear short external rotators from their insertion on the femur. Box osteotome and canal finder was used to gain access to the femoral canal and the lateral reamer on power was used to further open the proximal lateral canal. Sequentially rasping was carried up to a 6 which gave good fit and fill of the proximal femur. A trial reduction was carried out with a standard offset femoral neck component a 36-3.5 mm femoral head. The trial reduction was stable in all degrees of rotation with no [id number] impingement. The hip was dislocated, trial components were removed and access to the acetabulum was re-established. The trial liner was removed and the cup was irrigated to ensure all debris was removed. The final acetabular liner was inserted and properly seated in the cup. Access to the femur was once more gained and the size 6 femoral stem with standard offset was impacted into position. The hip was once more assessed with the 36-3.5 mm femoral head. Stability was accessed and found to be excellent with equal leg lengths. The hip was dislocated for the last time and the final 36-3.5 ceramic femoral head was impacted in place and the hip was reduced. Range of motion was checked once again and found to be stable. A Betadine soak was performed. After 3 minutes, the hip was once more irrigated with copious sterile saline solution with bacitracin. The ela-incisional soft tissue was injected utilizing [place] ortho mix which includes a combination of Ropivicaine 0.5% 150mg, Bupivicaine 0.5%/Epinephrine 1:200,000 30ml, Toradol 30mg, Dexamethasone 4mg, Ketamine 10mg, Clonidine 100mcg and NSS 30ml Orthomix solution. The piriformis, external rotators and capsule were repaired to the greater trochanter through bone tunnels using #5 FiberWire. The fascia was closed using #1 Vicryl, subcutaneous tissue was closed using 2-0 Vicryl, and skin was closed with cecilia and a sterile dry dressing was applied applied which included Prevena incisional VAC. The patient tolerated the procedure well and was transported to PACU in stable condition. Due to the complex nature of the procedure, the entire surgery was performed with the operational assistance of Dante Machuca PA-C. The rehabilitation assistant, under direct supervision, was involved in the actual performance of all aspects of the surgical procedure including patient positioning, hemostasis, tissue retraction, instrument management and wound closure. I attest to the content of the Intraoperative Record and any orders documented therein. Any exceptions are noted below.
--- NOTE | 2020-09-12 12:34 | Anesthesiology Progress Note ---
Date of Service September 12, 2020 Anesthesia Post Procedure Vital Signs Vital Signs: Temp Pulse Pulse Resp BP Pulse Ox 09/12/20 12:25 61 16 99/55 L 100 09/12/20 12:15 58 L 16 118/65 96 09/12/20 12:09 36.1 C L 68 16 95/56 L 98 09/12/20 07:53 36.7 C 78 18 141/77 H 97 Transfer of Care Handoff Completed per policy Notes Mental Status: alert / awake / arousable Patient Amnestic to Procedure: Yes Nausea / Vomiting: adequately controlled Pain: adequately controlled Airway Patency, RR, SpO2: stable & adequate BP & HR: stable & adequate Hydration State: stable & adequate Neuraxial Anesthesia: was administered and sensory block is resolving Anesthetic Complications: no major complications apparent and Pt Satisfied with anesthetic care
--- NOTE | 2020-09-12 12:43 | XRay Report ---
XR hip 1V RT w pelvis HISTORY: 65 years-old Female IN PACU - A/P PELVIS and LATERAL HIP right hip total joint arthroplast y COMPARISON: Pelvis radiograph 03/29/2020 TECHNIQUE: AP view the pelvis with crosstable lateral view of the right hip FINDINGS: Right hip total joint arthroplasty with expected postoperative soft tissue swelling and deep tissue a ir with overlying skin cecilia. Moderate left hip osteoarthritis. No acute fracture, malalignment or unexpected opaque foreign body. IMPRESSION: Right hip total joint arthroplasty with expected postoperative changes. ACT 112: Negative or not required by law. The above report was generated using voice recognition software. It may contain grammatical, syntax o r spelling errors. Electronically signed by: Dandre Cardoso M.D. 09/12/2020 12:42 PM
[2020-09-12] MEDS ORDERED: ceFAZolin 2000MG 2,000 MG/15 ML SYR IV SCH (12:52)
[2020-09-12] MEDS ORDERED: traMADol HCL 50 MG TABLET PO PRN (12:52)
[2020-09-12] MEDS ORDERED: HYDROmorphone INJ 0.5 MG/0.5 ML SYR IV PRN (12:52)
[2020-09-12] MEDS ORDERED: bisacodyL 10 MG SUPP PR PRN (12:52)
[2020-09-12] MEDS ORDERED: MAGNESIUM HYDROXIDE SUSP 30 ML UDC PO PRN (12:52)
[2020-09-12] MEDS ORDERED: METOCLOPRAMIDE HCL INJ 5 MG/ML 2 ML VIAL IV PRN (12:52)
[2020-09-12] MEDS ORDERED: NALOXONE HCL 0.4 MG/1 ML VIAL/CARP IV PRN (12:52)
[2020-09-12] MEDS ORDERED: diphenhydrAMINE 50 MG/ML VIAL IV PRN (12:52)
[2020-09-12] MEDS: ACETAMINOPHEN 500 MG TAB PO SCH ×2 (13:36→21:29)
[2020-09-12] MEDS: SODIUM CHLORIDE 0.9% 1000ML 1,000 ML IV SCH (14:25)
[2020-09-12] MEDS: ASTELIN - ORDER AWAITING ACTION SCH (16:28)
[2020-09-12] MEDS: ceFAZolin 3,000 MG in DEXTROSE 5% 50 ML IV SCH (17:40)
--- NOTE | 2020-09-12 20:34 | Orthopedic Progress Note ---
Date of Service September 12, 2020 Assessment & Plan (1) Degenerative joint disease of right hip: s/p R JAY -ancef x 24 -DVT ppx: SCDs, TEDs, Lovenox -WBAT RLE -PT/OT -PO XR demonstrates a well aligned well fixed prothesis without fracture/dislocation -am labs -DC planning Admission and Anticipated Discharge Date Admission Date: September 12, 2020 Subjective Post Operative Progress Note Patient seen sitting up in bed, comfortable, denies complaints, pain well controlled, no acute issues. Review of Systems Review of Systems: All systems reviewed & are unremarkable except as noted in HPI & below Constitutional: as per Subjective / HPI Physical Exam Physical Exam: RLE NVSI +EHL/FHL/TA/GS SILT grossly, +2 DP pulse, compartments soft NT, dressing cdi. Constitutional: WD/WN, vitals as above Results & Data ([facility]) Vital Signs (Past 12 Hours) Vital Signs Temp Pulse Pulse Resp BP Pulse Ox 09/12/20 19:49 36.5 C 94 H 18 133/74 96 09/12/20 17:05 36.8 C 74 16 138/83 98 09/12/20 15:56 36.8 C 71 16 131/71 96 09/12/20 15:43 36.8 C 75 16 115/70 97 09/12/20 15:00 36.4 C L 76 16 105/69 98 09/12/20 14:01 36.4 C L 72 18 130/81 98 09/12/20 13:30 36.3 C L 66 16 123/63 98 09/12/20 13:00 36.3 C L 57 L 16 104/58 L 98 09/12/20 12:46 36.4 C L 62 16 102/54 L 100 09/12/20 12:35 36.3 C L 63 16 96/52 L 100 09/12/20 12:25 61 16 99/55 L 100 09/12/20 12:15 58 L 16 118/65 96 09/12/20 12:09 36.1 C L 68 16 95/56 L 98
[2020-09-12] MEDS ORDERED: SENNA 8.6 MG TAB PO SCH (21:00)
[2020-09-12] MEDS: DOCUSATE SODIUM 100 MG CAP PO SCH (21:29)
[2020-09-13] MEDS: ceFAZolin 3,000 MG in DEXTROSE 5% 50 ML IV SCH (01:13)
[2020-09-13] MEDS: SODIUM CHLORIDE 0.9% 1000ML 1,000 ML IV SCH (01:24)
[2020-09-13] MEDS: ASTELIN - ORDER AWAITING ACTION SCH ×2 (01:26→07:46)
[2020-09-13] MEDS: ACETAMINOPHEN 500 MG TAB PO SCH (05:08)
[2020-09-13 06:02] LABS: Basophils # (auto) 0.01 K/uL (0-0.2); Basophils % (auto) 0.2 %; Eosinophils # (auto) 0.02 K/uL (0-0.5); Eosinophils % (auto) 0.3 %; Hematocrit (blood only) 32.8 % (37-47); Hemoglobin 11.2 g/dL (12.0-16.0); Lymphocytes # (auto) 0.69 K/uL (1.2-3.4); Lymphocytes % (auto) 10.7 %; Mean Corpuscular Hemoglobin 31.3 pg (25-34); Mean Corpuscular Hgb Conc 34.1 g/dL (32-36); Mean Corpuscular Volume 91.6 fL (80-100); Mean Platelet Volume 9.5 fL (7.4-10.4); Monocytes # (auto) 0.53 K/uL (0.11-0.59); Monocytes % (auto) 8.2 %; Neutrophils # (auto) 5.19 K/uL (1.4-6.5); Neutrophils % (auto) 80.6 %; Platelet Count 198 K/uL (130-400); RDW Coefficient of Variation 13.5 % (11.5-14.5); RDW Standard Deviation 44.9 fL (36.4-46.3); Red Blood Count 3.58 M/uL (4.2-5.4); White Blood Count 6.44 K/uL (4.8-10.8)
[2020-09-13 06:36] LABS: BUN Creatinine Ratio 18.3 (10-20); Calcium 8.7 mg/dl (8.5-10.1); Creatinine Clr Calc Pharmacy 91.4 ml/min; Est GFR (African American) 101.1; Est GFR (Non-African American) 87.3; Potassium 4.4 mmol/L (3.5-5.1)
[2020-09-13 07:36] VITALS: BP 121/71; PULSE 63; TEMP 97.7; O2SAT 97
[2020-09-13] MEDS: DOCUSATE SODIUM 100 MG CAP PO SCH (07:51)
[2020-09-13] MEDS ORDERED: MULTIVITAMIN TAB PO SCH (09:00)
[2020-09-13] MEDS ORDERED: LORATADINE 10 MG TAB PO SCH (09:00)
[2020-09-13] MEDS ORDERED: ENOXAPARIN INJ 40 MG/0.4 ML SYR SQ SCH (09:00)
[2020-09-13] MEDS ORDERED: LETROZOLE 2.5 MG TAB PO SCH (09:00)
--- NOTE | 2020-09-13 09:00 | Orthopedic Progress Note ---
Date of Service September 13, 2020 Assessment & Plan (1) Degenerative joint disease of right hip: s/p R JAY POD#1 -ancef x 24 -DVT ppx: SCDs, TEDs, Lovenox -WBAT RLE -PT/OT -PO XR demonstrates a well aligned well fixed prothesis without fracture/dislocation -am labs - as above, hgb 11.2 -DC planning - home with HH Admission and Anticipated Discharge Date Admission Date: September 12, 2020 Subjective Post Operative Progress Note Patient seen sitting up in bed, comfortable, denies complaints, pain well controlled, no acute issues. Denies F/C/N/V/SOB/CP. Review of Systems Review of Systems: All systems reviewed & are unremarkable except as noted in HPI & below Constitutional: as per Subjective / HPI Physical Exam Physical Exam: RLE NVSI +EHL/FHL/TA/GS SILT grossly, +2 DP pulse, compartments soft NT, dressing cdi. Constitutional: WD/WN, vitals as above Results & Data ([facility]) Vital Signs (Past 12 Hours) Vital Signs Temp Pulse Resp BP Pulse Ox 09/13/20 07:33 36.5 C 63 16 121/71 97 09/13/20 02:34 36.6 C 54 L 16 139/80 99 09/12/20 22:00 36.6 C 61 16 105/65 96 Laboratory Results 09/13/20 09/13/20 Range/Units 05:43 05:43 WBC 6.44 (4.8-10.8) K/uL RBC 3.58 L (4.2-5.4) M/uL Hgb 11.2 L (12.0-16.0) g/dL Hct 32.8 L (37-47) % MCV 91.6 (80-100) fL MCH 31.3 (25-34) pg MCHC 34.1 (32-36) g/dL RDW Std Deviation 44.9 (36.4-46.3) fL RDW Coeff of Ga 13.5 (11.5-14.5) % Plt Count 198 (130-400) K/uL MPV 9.5 (7.4-10.4) fL Immature Gran % (Auto) 0.0 % Neut % (Auto) 80.6 % Lymph % (Auto) 10.7 % Nicholas % (Auto) 8.2 % Eos % (Auto) 0.3 % Baso % (Auto) 0.2 % Neut # (Auto) 5.19 (1.4-6.5) K/uL Lymph # (Auto) 0.69 L (1.2-3.4) K/uL Nicholas # (Auto) 0.53 (0.11-0.59) K/uL Eos # (Auto) 0.02 (0-0.5) K/uL Baso # (Auto) 0.01 (0-0.2) K/uL Immature Gran # (Auto) 0.00 (0.00-0.02) K/uL Sodium 140 (136-145) mmol/L Potassium 4.4 (3.5-5.1) mmol/L Chloride 108 H (98-107) mmol/L Carbon Dioxide 28 (21-32) mmol/L Anion Gap 4.0 (3-11) BUN 13 (7-18) mg/dl Creatinine 0.72 (0.6-1.2) mg/dl Est Cr Clr Drug Dosing 91.4 ml/min Est GFR ( Amer) 101.1 Est GFR (Non-Af Amer) 87.3 BUN/Creatinine Ratio 18.3 (10-20) Glucose 105 H (70-99) mg/dl Calcium 8.7 (8.5-10.1) mg/dl
--- NOTE | 2020-09-13 21:37 | Discharge Summary ---
Date of Service September 13, 2020 Admission HPI Per Admitting Provider The patient is a 65 year old female who presents with complaints of severe right hip pain and DJD. The patient has failed outpatient conservative treatments to this point which included NSAIDs, HEP. The patient's pain and limited function have progressed to the point where they severely hinder their activities of daily living and they no longer tolerate exercise programs. They are requesting to proceed with total hip replacement surgery. Principal Diagnosis Right total hip replacement Discharge Exam RLE NVSI +EHL/FHL/TA/GS SILT grossly, +2 DP pulse, compartments soft NT, dressing cdi. Constitutional WD/WN, vitals as above Discharge Data Allergies Allergy/AdvReac Type Severity Reaction Status Date / Time meperidine AdvReac Unknown NAUSEA AND Verified 09/12/20 07:44 VOMITING, severe drowsiness oxycodone AdvReac Unknown Hypotension Verified 09/12/20 07:44 & vertigo Procedures Performed Operation Date: 09/12/20 09:15 Actual Procedures p Right Total Hip Arthroplasty(Right) - Jeff Frank DO Hospital Course (1) Degenerative joint disease of right hip: The patient is a 65 -year-old female who presents with long standing history of severe right hip DJD and failed outpatient conservative treatments. The patient's symptoms have progressed to the point where it has been difficult to perform even normal activities of daily living. I indicated the patient for a right total hip arthroplasty, the risks, benefits and complications of the procedure include but not limited to infection, bleeding, damage to bone, nerves, vessels, surrounding soft tissue, may develop blood clots, loss of function, leg length discrepancy, dislocation, failure of the components, loosening of the components, the need for additional surgery and . The patient wished to proceed with surgery at this time and informed consent was obtained. Hospital Course: On 09/12/20 the patient was taken to the operating room, adequate anesthesia administered and underwent a right total hip arthroplasty. The patient to lerated the procedure well and was taken to the PACU in stable condition. Post- operatively the patient was started on a DVT ppx medication and given appropriate IV antibiotics. Consults were placed to physical therapy, occupational therapy and case management. On POD#1, the patient did well overnight and their pain was well controlled. Labs were drawn and the Hgb was 11.2. The patient progressed well with PT. Dressings were changed at this time and the incision was clean, dry and intact. The patients hospital stay was relatively uneventful and they were deemed stable by the orthopedic team and consultants to be discharged home with HH on 09/13/20. Discharge Instructions: Upon discharge the patient may weight bear as tolerates through their operative extremity. They were instructed to keep the incision clean and dry at all times. The patient may shower but should not submerge the incision, avoid bathing, pools and hot tubs. The patient was given a script for pain medication and should take as instructed. The patient was given a script for DVT ppx Lovenox and should take as directed. The patient was instructed to not drive or travel for long distances until cleared to do so. If the patient develops any symptoms of fevers, chills, nausea, vomiting, increased redness, swelling, pain or drainage from the surgical site, they should notify the office and/or proceed to the nearest emergency room. The patient should follow up in 10-14 days after surgery for their routine post-operative follow-up appointment and should call the office, to confirm the date and time. s/p R JAY POD#1 -ancef x 24 -DVT ppx: SCDs, TEDs, Lovenox -WBAT RLE -PT/OT -PO XR demonstrates a well aligned well fixed prothesis without fracture/dislocation -am labs - as above, hgb 11.2 -DC planning - home with Total Time Total Time Spent Total Time Spent (In Minutes): 30 Discharge Plan Discharge Items Patient Disposition: Home - Home Health Services Reason For Visit: Osteoarthritis, Right Hip Discharge Diagnosis: Right total hip replacement Condition on Discharge: Good Activity: Per Instructions section Lifting: Wait until after follow-up appointment Bathing: Keep incision dry Bathing Comment: No bathing, pools or hot tubs. Sexual Activity: Wait until after follow-up appointment Exercise/Sports: Wait until after follow-up appointment Driving/Machine Use: No driving Weightbearing: Full weightbearing Non-emergency contact: Primary Care Provider and Surgeon Call non-emergency contact if: you have any medication questions, your symptoms worsen, your pain is not controlled, your pain is worsening, your pain is unusual for you, your pain is concerning for you, you have a fever, your temperature is above 101, your wound has increased redness, your wound has increased drainage and your wound pain has increased Follow-up/Referrals: Daniel Carter MD [Primary Care Provider] - Diet: Regular Addtl Attending Provider Instructions: ACTIVITY RECOMMENDATIONS: SELF CARE INSTRUCTIONS AFTER TOTAL HIP REPLACEMENT Until the incision and soft tissues around your hip have healed, there is a possibility that the hip prosthesis could dislocate. A. Observe the following precautions to prevent dislocation: 1. Don't bend your hip greater than 90 degrees. 2. Avoid crossing your legs or ankles while standing or lying. 3. Sit with your feet placed 6 inches apart. 4. When sitting, keep your knees below your hips. Sit on a firm surface, avoid deep, soft chairs and couches. Use an elevated toilet seat in the bathroom. 5. Don't bend over at the waist. Use a long handled shoehorn and a sock aid to help you put on your shoes and socks. A home health travel ot can help you berry picker objects that are too high or too low to reach. 6. Keep car riding to a minimum for at least one month after surgery. B. Your balance may be shaky for a while. Use crutches or a walker until directed by your doctor. C. Use hand rails when walking on stairs. D. Wear low heeled shoes with non-slip soles. E. Be sure that your floors are free of things that could trip you - throw rugs, electrical cords, small objects. Avoid wet and waxed floors, especially with crutches and canes. F. Try to walk several times a day with rest periods between. G. Continue with all the exercises taught to you in the hospital. Again, make walking a part of your daily routine. SPECIAL CARE INSTRUCTIONS: VERY IMPORTANT TO READ AND REVIEW A. You may still be at risk for phlebitis and blood clots. 1. Wear surgical stockings (LEYDA hose) for 2 weeks after surgery to improve circulation and reduce swelling. 2. Take Lovenox 40mg daily for 4 weeks or as directed by your doctor. This is your blood thinner. 3. High risk patients may be prescribed a stronger blood thinner if necessary. 4. If you are on Coumadin normally, your family doctor/multi township assessor should monitor your blood work. Expect a phone call the day of or the day after bloodwork is drawn to adjust your dosage. B. You must take antibiotics before having dental work, bladder, bowel and other surgery. Your doctor will provide you with a permanent card to carry describing precautions. C. Call [facility] if you have a fever, redness or swelling around the incision, cloudy drainage from incision, or sudden increase in pain in your hip, not relieved by your regular pain medication. D. Please call the office at if you have any concerns or questions about your operation or recovery. * YOU MAY SHOWER, NO TUB BATHS UNTIL CLEARED BY YOUR DOCTOR. * WEAR LEYDA HOSE 20 HOURS PER DAY FOR 2 WEEKS. * YOU SHOULD USE A WALKER OR CRUTCHES FOR 2-4 WEEKS. THIS WILL HELP PREVENT STRAIN ON YOUR HIP MUSCLE AND ALLOW IT TO HEAL PROPERLY. YOU MAY WEAN TO A CANE TOLERATED. * MOST PATIENTS WILL HAVE HOME NURSING FOR THERAPY. IF YOU DECIDE TO DO OUTPATIENT PHYSICAL THERAPY, PLEASE SCHEDULE THIS 3 TIMES PER WEEK. *PREVENA incisional vac is a special dressing covering your incision. This dressing provides a sterile dry environment while you are healing. The dressing is to be left in place for 7 days post-operatively. Your home nurse or surgeon will remove. If you develop any redness or blisters or have any questions notify your surgeon immediately. FOLLOW UP VISIT: If appointment is not already scheduled: Please call [facility] to make a follow-up appointment for 2 weeks after your surgery at . Pending Studies at Discharge: No Stand-Alone Forms: My [employer], Smoking Cessation Medications and DC Order Prescriptions: New enoxaparin 40 mg/0.4 mL Syringe 40 mg subcut Q24H Qty: 28 RF: 0 acetaminophen 500 mg Tablet 1,000 mg PO Q8 PRN (Reason: fever or pain) Qty: 90 RF: 0 tramadol 50 mg Tablet 50 - 100 mg PO Q6H MDD 8 PRN (Reason: pain) Qty: 30 RF: 0 sennosides [Senokot] 8.6 mg Tablet 17.2 mg PO HS PRN (Reason: constipation) Qty: 30 RF: 0 Continued letrozole 2.5 mg tablet 2.5 mg PO QAM RF: 0 Caltrate + D3 Plus Minerals 300 mg-800 unit -25 mg-0.5 mg tablet 1 tab PO QAM RF: 0 azelastine 137 mcg (0.1 %) aerosol,spray 2 spray INTNAS BID Qty: 30 RF: 5 multivitamin Tablet 1 tab PO DAILY RF: 0 triamcinolone acetonide [Nasacort] 55 mcg Aerosol,[place] 2 spray INTRANASAL DAILY RF: 0 loratadine [Claritin] 10 mg Tablet 10 mg PO DAILY RF: 0 Discontinued meloxicam 15 mg Tablet 15 mg PO UD PRN (Reason: Pain) RF: 0 Discharge Orders: Discharge Order (Routine); Ordered 09/13/20 Ordered By: Dante Machuca Admission Data Admit Date/Time: 09/12/20 12:16 Attending Provider: Jeff Frank Admit Provider: Jeff Frank Primary Care Provider: Daniel Carter Other Providers: [facility] Other Interventions: Discharge Summary Assessment (RN) Last Done: 09/13/20 10:27
== END 2020-09-13 11:38 | disposition home health service (06) ==
LOC: PACUINP 06:58 → PAT 06:58 → 3E 14:27